=== PATIENT | female | born 1945 | race Hispanic/Latino ===

== ENCOUNTER 2020-06-30 16:46 | Inpatient (IN) | payer MEDICARE, OTHER ==
[~2020-06-30] VITALS: Ht 160 cm; Wt 57.8 kg
--- OUTSIDE RECORDS SUMMARY | 2020-06-30 17:06 | XMS REPORT | Summary of Care ---
Author Author ALEX Rivera M.A. Organization Unknown Address Unknown Phone Unavailable Care Team Providers Care End Frazer Name Role Phone SARIKA HAM M.D. 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) Status: Active Medications Name Dates Details Medications not documented Allergies and Adverse Reactions Name Dates Details aspirin (Allergy) Status: Active Penicillins (Allergy) Status: Active Procedures Procedure Dates Details [U] XRAY KNEE 4 OR MORE VWS LEFT [id number] Date: 16-Oct-2017 Immunization Name Dates Details Immunizations not documented Social History Name Dates Details Unknown if ever smoked Vital Signs Date Test Result Details 17-Oct-20179:11 Height 62 in Status: Weight 129 lb Status: Body Mass Index Calculated 23.59 kg/m2 Status: Body Surface Area Calculated 1.59 m2 Status: Results Date Description Value Details Results not documented Plan of Care Name Dates Details Planned Observations Planned Goals not documented Interventions Provided Labs/Procedures/Imaging* [U] XRAY KNEE 4 OR MORE VWS LEFT [id number]; To Be Done: 17 Oct 2017 Instructions Name Dates Details Instructions not documented Encounters Appointment; SARIKA HAM M.D. Encounter Diagnosis: Problem not documented On: 17-Oct-2017 8:45
--- OUTSIDE RECORDS SUMMARY | 2020-06-30 17:06 | XMS REPORT | Continuity of Care Document ---
Author Author [facility] Organization [facility] Address [address] [place] [address] Phone Unavailable Care Team Providers Care Adolescent Counselor Name Role Phone SARIKA HAM M.D. Attphys Unavailable Payers Payer Name Policy Type Policy Number Effective Date Expiration Date S ource Problems Condition Name Condition Details Condition Category Status Onset Date Resolution Date Last Treatment Date Treating Clinician Comments Source Limb pain Limb pain Problem Active [facility] Allergies, Adverse Reactions, Alerts Allergy Name Allergy Type Status Severity Reaction(s) Onset Date Inacti ve Date Treating Clinician Comments Source baclofen DA Active 2017-07-04 00:00:00 [facility] Penicillins DA Active 2017-07-03 00:00:00 [facility] aspirin DA Active [place] 2017-07-03 00:00:00 [facility] penicillin G DA Active 2010-04-05 00:00:00 [facility] aspirin drug allergy Active [facility] Penicillins drug allergy Active [facility] Medications This patient has no known medications. Vital Signs Vital Name Observation Time Observation Value Comments Source Height 2017-10-17 09:11:00 62 [in_us] [facility] Weight 2017-10-17 09:11:00 129 [lb_av] [facility] Body Mass Index Calculated 2017-10-17 09:11:00 23.59 kg/m2 [facility] Procedures Procedure Date / Time Performed Performing Clinician Sourc e [U] XRAY KNEE 4 OR MORE VWS LEFT [id number] 2017-10-16 00:00:00 [facility] Encounters Start Date/Time End Date/Time Encounter Type Admission Type Attendi [facility] Care Department Encounter ID Source 2017-10-17 08:45:00 2017-10-17 08:45:00 Appointment; SARIKA HAM M.D. HUANG, EDDIE, M.D. [facility] Orthopedics at [facility] [id number] [facility] Results Test Description Test Time Test Comments Results Result Comments Source GLUCOSE BEDSIDE TESTING 2020-05-25 11:38:00 Test Item GLUCOSE BEDSIDE TESTING (test code = GLUBED) 184 MG/DL 70-119 H GLUCOSE BEDSIDE [id number] 08:29:00* Test Item Value Reference Range Interpretation Comments GLUCOSE BEDSIDE TESTING (test code = GLUBED) 79 MG/DL 70-119 N COMPREHENSIVE METABOLIC [id number] 07:25:00* Test Item Value Reference Range Interpretation Comments SODIUM (test code = NA) 138.0 mmol/L 133-144 N POTASSIUM (test code = K) 3.7 mmol/L 3.5-5.1 N CHLORIDE (test code = CL) 107 mmol/L 95-105 H CARBON DIOXIDE (test code = CO2) 27 mmol/L 21-32 N ANION GAP (test code = GAP) 4.0 GAP calc 4.0-15.0 N GLUCOSE (test code = GLU) 92 MG/DL 70-110 N BLOOD UREA NITROGEN (test code = BUN) 14 MG/DL 7-18 N GLOMERULAR FILTRATION RATE (test code = GFR) 29 estGFR >60 L The estimated glomerular filtration rate is computed usingpatient race, age, sex, and serum creatinine. If any of theneeded data elements are missing the Laboratory can notcompute an estimation of the glomerular filtration rate.The GFR value units = ml/min/1.73 meter squared. EstimatedGFR values above 60 should be interpreted as >60, not anexact number.--- DRUG DOSAGE ALERT --- Drug dosage adjustments utilize different calculationparameters. CREATININE (test code = CREAT) 1.71 MG/DL 0.55-1.30 H Results may be depressed if patient is takingN-Acetylcysteine (NAC) and Metamizole (Dipyrone). TOTAL PROTEIN (test code = PROT) 6.2 G/DL 6.4-8.2 L ALBUMIN (test code = ALB) 2.3 G/DL 3.4-5.0 L ALBUMIN/GLOBULIN RATIO (test code = A/G) 0.6 RATIO 1.2-2.2 L CALCIUM (test code = CA) 7.8 MG/DL 8.5-10.1 L BILIRUBIN TOTAL (test code = BILT) 0.37 MG/DL 0.00-1.00 N BILIRUBIN DIRECT (test code = BILD) 0.19 MG/DL 0.00-0.30 N BILIRUBIN INDIRECT (test code = BILIND) 0.18 MG/DL 0.2-1.3 L SGOT/AST (test code = AST) 27 Unit/L 15-37 N SGPT/ALT (test code = ALT) 18 Unit/L 12-78 N ALKALINE PHOSPHATASE TOTAL (test code = ALKP) 83 Unit/L 45-117 N INDEX HEMOLYSIS (test code = HEMINDEX) 1 NORMAL <10 MG Index/DL 1 N ORMAL INDEX ICTERIC (test code = ICTINDEX) 1 NORMAL <2 MG Index/DL 1 NORM AL INDEX LIPEMIA (test code = LIPINDEX) 1 NORMAL <50 MG Index/DL 1 NOR MAL COMPREHENSIVE METABOLIC [id number] 07:20:00* Test Item Value Reference Range Interpretation Comments SODIUM (test code = NA) 138.0 mmol/L 133-144 N POTASSIUM (test code = K) 3.7 mmol/L 3.5-5.1 N CHLORIDE (test code = CL) 107 mmol/L 95-105 H CARBON DIOXIDE (test code = CO2) 27 mmol/L 21-32 N ANION GAP (test code = GAP) 4.0 GAP calc 4.0-15.0 N GLUCOSE (test code = GLU) 92 MG/DL 70-110 N BLOOD UREA NITROGEN (test code = BUN) 14 MG/DL 7-18 N CREATININE (test code = CREAT) MG/DL 0.55-1.30 TOTAL PROTEIN (test code = PROT) G/DL 6.4-8.2 ALBUMIN (test code = ALB) 2.3 G/DL 3.4-5.0 L ALBUMIN/GLOBULIN RATIO (test code = A/G) RATIO 1.2-2.2 CALCIUM (test code = CA) 7.8 MG/DL 8.5-10.1 L BILIRUBIN TOTAL (test code = BILT) MG/DL 0.00-1.00 BILIRUBIN DIRECT (test code = BILD) MG/DL 0.00-0.30 BILIRUBIN INDIRECT (test code = BILIND) MG/DL 0.2-1.3 SGOT/AST (test code = AST) Unit/L 15-37 SGPT/ALT (test code = ALT) Unit/L 12-78 ALKALINE PHOSPHATASE TOTAL (test code = ALKP) Unit/L 45-117 INDEX HEMOLYSIS (test code = HEMINDEX) 1 NORMAL <10 MG Index/DL 1 N ORMAL INDEX ICTERIC (test code = ICTINDEX) 1 NORMAL <2 MG Index/DL 1 NORM AL INDEX LIPEMIA (test code = LIPINDEX) 1 NORMAL <50 MG Index/DL 1 NOR MAL GLUCOSE BEDSIDE [id number] 20:23:00* Test Item Value Reference Range Interpretation Comments GLUCOSE BEDSIDE TESTING (test code = GLUBED) 139 MG/DL 70-119 H GLUCOSE BEDSIDE [id number] 16:04:00* Test Item Value Reference Range Interpretation Comments GLUCOSE BEDSIDE TESTING (test code = GLUBED) 77 MG/DL 70-119 N - SP ANGIO EXT UNI [id number] 14:11:00 Patient Name: ALEX FRASER Unit No: [id number] EXAMS: CPT CODE: [id number] [place] [id number] AORTOGRAM, BILATERAL LOWER EXTREMITY ARTERIOGRAM, SELECTIVE CATHETERIZATION OF THE LEFT SUPERFICIAL FEMORAL ARTERY, LEFT COMMON FEMORAL AND POPLITEAL ATHERECTOMY AND DRUG COATED BALLOON ANGIOPLASTY Dated: 05/24/2020 12:00 PM LOCATION: T18 Reference air kerma: 169 mGy Indication: History of ischemic changes to the left lower extremity. SEDATION: Under physician supervision, Versed and fentanyl were administered intravenously for moderate sedation. Pulse oximetry, heart rate, and BP were continuously monitored by an independent trained ob magnetic observer present. The physician spent 20 minutes of pnwy-ja-wunj sedation t kathy with the patient. TECHNIQUE: The risks, benefits, and al ternatives were discussed and informed consent was obtained. Prior to beg inning the procedure, Tutwiler Protocol was used to confirm the patient's identity and planned procedure. Sterile barriers including cap, mask, west d hygiene, sterile gloves, and cutaneous antisepsis were used. Procedure: Prior to the procedure, the right common femoral artery was evaluated by ultrasound. An image of the patent vessel was recorded and saved to PACS. After sterile prep, this vessel was accessed with a micropuncture needle using real-time ultrasound guidance. The tract seq uentially dilated and a 5-Puerto [place]ican flush catheter advanced to the level of t he abdominal aorta. The catheter was withdrawn to the aortic bifurcation and bilateral oblique pelvic arteriograms performed. The catheter was sub sequently withdrawn to the right external iliac artery and the right lower extremity arteriogram performed. Subsequent selective catheterization of the left superficial femoral artery was performed and left lower extremit y arteriogram performed. Subsequently over wire exchange was then pe rformed for long 6 [place] sheath which is placed over the aortic bifurcati on into the left external iliac artery. A catheter and guidewire were then advanced across the areas of the left common femoral and popliteal artery stenosis. Atherectomy was then performed with a CSI 2 mm atherectomy noy ce. This was followed by 6 mm Lutonix drug coated balloon angioplasty at t he level of the common femoral artery and 5 mm Lutonix drug coated balloon angioplasty at the level of the popliteal artery. Postprocedure there was no significant residual stenosis or flow limiting dissection, the cathete r was removed and hemostasis secured by means of the StarClose system. Findings: ABDOMINAL AORTA: The abdominal aorta is paten t and free of significant [facility] NAME: ALEX YOUSIF Interventional Lab PHYS: Rylan Doyle Od, MD [address] [place] [address] Blvd : 1945 AGE: 75 SEX: F [place], [place] [phone] LOC: B.240 W PHONE #: EXAM DATE: 05/24/2020 STATUS: A DM IN FAX #: RAD #: D/C DT PAGE 1 Signed Report (CONTINUED) Patient Name: ALEX FRASER Unit No: [id number] EXAMS: CPT CODE: [id number] [place] [id number] <Continued> stenosis. There are patent celiac, superior mesenteric, and bilateral single renal arteries noted. RIGHT LOWER EXTREMITY ARTERIOGRAM: There is a focal area of 70-80% stenosis of the common iliac artery. The external and internal iliac arteries are patent and free of significant stenosis. The right internal iliac artery is also patent and free of sign ificant stenosis.. The right common, superficial femoral artery and popli teal artery are free of significant stenosis and there is three-vessel anterior tibial, tibioperoneal, peroneal, and posterior tibial artery r unoff to the right foot with predominant supply of the right foot being vi a the dorsalis pedis artery. LEFT LOWER EXTREMITY ARTERIOGRAM: The re is a focal area of 70-80% stenosis of the left common iliac artery. The left external and internal iliac arteries are patent and free of signific ant stenosis. There is a focus of 80% stenosis of the common femoral arter y patent superficial femoral and profunda femoris arteries, focus of 70% stenosis of the above knee popliteal artery and three-vessel anterior tibial tibioperoneal peroneal and posterior tibial artery runoff to the f oot. Complications: None. IMPRESSION: 1. Successful left common femoral and popliteal atherectomy and a ngioplasty. 2. Bilateral common iliac stenosis. PLAN: Elective arteriogram and intervention for the bilateral common iliac stone nosis at 1411 Reported and signed by: Rylan Lerner M.D. CC: Rylan Lerner MD; Josh Storey Dictated Date/Time: 05/24/2020 ( 1410) Technologist: Anderson toscano Time: DAP (Gy m2): Air Kerma (mGy): Trnscrpt: 020 (141) [email or web address] [facility] [place] IR NAME: ALEX FRASER Interventional Lab PHYS: Rylan Noel MD [address] [place] [address] Blvd : 1945 AGE: 75 SEX: F [place], [place] [address] LOC: B.240 W PHONE #: EXAM DATE: STATUS: ADM IN FAX #: RAD #: D/C DT PAGE 2 Signed Report - SP AORTOGM ABD [id number] 14:11:00 Patient Name: ALEX FRASER Unit No: [id number] EXAMS: CPT CODE: [id number] SP AORTOGM ABD W/RNF [id number] AORTOGRAM, BILATERAL LOWER EXTREMITY ARTERIOGRAM, SELECTIVE CATHETERIZATION OF THE LEFT SUPERFICIAL FEMORAL ARTERY, LEFT COMMON FEMORAL AND POPLITEAL ATHERECTOMY AND DRUG COATED BALLOON ANGIOPLASTY Dated: 05/24/2020 12:00 PM LOCATION: T18 Reference air kerma: 169 mGy Indication: History of ischemic changes to the left lower extremity. SEDATION: Under physician supervision, Versed and fentanyl were administered intravenously for moderate sedation. Pulse oximetry, heart rate, and BP were continuously monitored by an independent trained ob magnetic observer present. The physician spent 20 minutes of kltq-oi-avxe sedation t kathy with the patient. TECHNIQUE: The risks, benefits, and al ternatives were discussed and informed consent was obtained. Prior to beg inning the procedure, Tutwiler Protocol was used to confirm the patient's identity and planned procedure. Sterile barriers including cap, mask, west d hygiene, sterile gloves, and cutaneous antisepsis were used. Procedure: Prior to the procedure, the right common femoral artery was evaluated by ultrasound. An image of the patent vessel was recorded and saved to PACS. After sterile prep, this vessel was accessed with a micropuncture needle using real-time ultrasound guidance. The tract seq uentially dilated and a 5-[place] flush catheter advanced to the level of t he abdominal aorta. The catheter was withdrawn to the aortic bifurcation and bilateral oblique pelvic arteriograms performed. The catheter was sub sequently withdrawn to the right external iliac artery and the right lower extremity arteriogram performed. Subsequent selective catheterization of the left superficial femoral artery was performed and left lower extremit y arteriogram performed. Subsequently over wire exchange was then pe rformed for long 6 [place] sheath which is placed over the aortic bifurcati on into the left external iliac artery. A catheter and guidewire were then advanced across the areas of the left common femoral and popliteal artery stenosis. Atherectomy was then performed with a CSI 2 mm atherectomy noy ce. This was followed by 6 mm Lutonix drug coated balloon angioplasty at t he level of the common femoral artery and 5 mm Lutonix drug coated balloon angioplasty at the level of the popliteal artery. Postprocedure there was no significant residual stenosis or flow limiting dissection, the cathete r was removed and hemostasis secured by means of the StarClose system. Findings: ABDOMINAL AORTA: The abdominal aorta is paten t and free of significant [facility] NAME: ALEX YOUSIF Interventional Lab PHYS: Rylan Doyle Od, MD [address] [place] [address] Blvd : 1945 AGE: 75 SEX: [place] [phone] LOC: B.240 W PHONE #: EXAM DATE: 05/24/2020 STATUS: A DM IN FAX #: RAD #: D/C DT PAGE 1 Signed Report (CONTINUED) Patient Name: ALEX FRASER Unit No: [id number] EXAMS: CPT CODE: [id number] SP AORT OGM ABD W/RNF [id number] <Continued> stenosis. There are patent celiac, superior mesenteric, and bilateral single renal arteries noted. RIGHT LOWER EXTREMITY ARTERIOGRAM: There is a focal area of 70-80% stenosis of the common iliac artery. The external and internal iliac arteries are patent and free of significant stenosis. The right internal iliac artery is also patent and free of sign ificant stenosis.. The right common, superficial femoral artery and popli teal artery are free of significant stenosis and there is three-vessel anterior tibial, tibioperoneal, peroneal, and posterior tibial artery r unoff to the right foot with predominant supply of the right foot being vi a the dorsalis pedis artery. LEFT LOWER EXTREMITY ARTERIOGRAM: The re is a focal area of 70-80% stenosis of the left common iliac artery. The left external and internal iliac arteries are patent and free of signific ant stenosis. There is a focus of 80% stenosis of the common femoral arter y patent superficial femoral and profunda femoris arteries, focus of 70% stenosis of the above knee popliteal artery and three-vessel anterior tibial tibioperoneal peroneal and posterior tibial artery runoff to the f oot. Complications: None. IMPRESSION: 1. Successful left common femoral and popliteal atherectomy and a ngioplasty. 2. Bilateral common iliac stenosis. PLAN: Elective arteriogram and intervention for the bilateral common iliac stone nosis at 1411 Reported and signed by: Rylan Lerner M.D. CC: Rylan Lerner MD; Josh Varela Date/Time: 05/24/2020 ( 141) Technologist: Anderson Grimes ro Time: DAP (Gy m2): Air Kerma (mGy): Trnscrpt: 020 (141) [email or web address] [facility] [place] IR NAME: ALEX FRASER Interventional Lab PHYS: Rylan Noel MD [address] [place] [address] Blvd : 1945 AGE: 75 SEX: F [place], [place] [phone] LOC: B.240 W PHONE #: EXAM DATE: STATUS: ADM IN FAX #: RAD #: D/C DT PAGE 2 Signed Report GLUCOSE BEDSIDE [id number] 13:38:00* Test Item Value Reference Range Interpretation Comments GLUCOSE BEDSIDE TESTING (test code = GLUBED) 84 MG/DL 70-119 N GLUCOSE BEDSIDE [id number] 11:52:00* Test Item Value Reference Range Interpretation Comments GLUCOSE BEDSIDE TESTING (test code = GLUBED) 79 MG/DL 70-119 N GLUCOSE BEDSIDE [id number] 08:22:00* Test Item Value Reference Range Interpretation Comments GLUCOSE BEDSIDE TESTING (test code = GLUBED) 98 MG/DL 70-119 N BASIC METABOLIC [id number] 05:10:00* Test Item Value Reference Range Interpretation Comments SODIUM (test code = NA) 138.0 mmol/L 133-144 N POTASSIUM (test code = K) 3.7 mmol/L 3.5-5.1 N CHLORIDE (test code = CL) 107 mmol/L 95-105 H CARBON DIOXIDE (test code = CO2) 27 mmol/L 21-32 N ANION GAP (test code = GAP) 4.0 GAP calc 4.0-15.0 N GLUCOSE (test code = GLU) 87 MG/DL 70-110 N BLOOD UREA NITROGEN (test code = BUN) 15 MG/DL 7-18 N CREATININE (test code = CREAT) 1.79 MG/DL 0.55-1.30 H Results may be depressed if patient is takingN-Acetylcysteine (NAC) and Metamizole (Dipyrone). CALCIUM (test code = CA) 8.0 MG/DL 8.5-10.1 L INDEX HEMOLYSIS (test code = HEMINDEX) 1 NORMAL <10 MG Index/DL 1 N ORMAL INDEX ICTERIC (test code = ICTINDEX) 1 NORMAL <2 MG Index/DL 1 NORM AL INDEX LIPEMIA (test code = LIPINDEX) 1 NORMAL <50 MG Index/DL 1 NOR MAL BASIC METABOLIC [id number] 05:07:00* Test Item Value Reference Range Interpretation Comments SODIUM (test code = NA) 138.0 mmol/L 133-144 N POTASSIUM (test code = K) 3.7 mmol/L 3.5-5.1 N CHLORIDE (test code = CL) 107 mmol/L 95-105 H CARBON DIOXIDE (test code = CO2) 27 mmol/L 21-32 N ANION GAP (test code = GAP) 4.0 GAP calc 4.0-15.0 N GLUCOSE (test code = GLU) 87 MG/DL 70-110 N BLOOD UREA NITROGEN (test code = BUN) 15 MG/DL 7-18 N CREATININE (test code = CREAT) MG/DL 0.55-1.30 CALCIUM (test code = CA) 8.0 MG/DL 8.5-10.1 L INDEX HEMOLYSIS (test code = HEMINDEX) 1 NORMAL <10 MG Index/DL 1 N ORMAL INDEX ICTERIC (test code = ICTINDEX) 1 NORMAL <2 MG Index/DL 1 NORM AL INDEX LIPEMIA (test code = LIPINDEX) 1 NORMAL <50 MG Index/DL 1 NOR MAL CBC W/AUTO [id number] 04:50:00* Test Item Value Reference Range Interpretation Comments WHITE BLOOD CELL (test code = WBC) 10.0 K/mm3 4.1-12.1 N RED BLOOD CELL (test code = RBC) 3.38 M/mm3 3.8-5.5 L HEMOGLOBIN (test code = HGB) 9.1 G/DL 10.6-15.8 L HEMATOCRIT (test code = HCT) 29.8 % 31.8-47.4 L MEAN CELL VOLUME (test code = MCV) 88.2 fL 80.1-101.1 N MEAN CELL HGB (test code = MCH) 26.9 pg 25.3-35.3 N MEAN CELL HGB CONCETRATION (test code = MCHC) 30.5 G/DL 32.7-35. 1 L RED CELL DISTRIBUTION WIDTH (test code = RDW) 14.9 % 12.2-16. 4 N RED CELL DISTRIBUTION WIDTH (test code = RDW-SD) 46.8 fL 36.4- 46.3 H PLATELET COUNT (test code = PLT) 243 K/mm3 155-337 N MEAN PLATELET VOLUME (test code = MPV) 10.3 fL 6.8-11.2 N GRANULOCYTE % (test code = GR%) 70.4 % 37.8-82.6 N IMMATURE GRANULOCYTE % (test code = IG%) 1.1 % 0.0-2.0 N LYMPHOCYTE % (test code = LY%) 20.4 % 14.1-45.4 N MONOCYTE % (test code = MO%) 5.4 % 2.5-11.7 N EOSINOPHIL % (test code = EO%) 2.5 % 0.0-6.2 N BASOPHIL % (test code = BA%) 0.2 % 0.0-2.1 N NUCLEATED RBC % (test code = NRBC%) 0.0 /100WBC% 0.0-1.0 N GRANULOCYTE # (test code = GR#) 7.01 k/mm3 2.0-13.7 N IMMATURE GRANULOCYTE # (test code = IG#) 0.11 K/mm3 0.00-0.03 H LYMPHOCYTE # (test code = LY#) 2.03 K/mm3 0.6-3.8 N MONOCYTE # (test code = MO#) 0.54 K/mm3 0.11-0.59 N EOSINOPHIL # (test code = EO#) 0.25 K/mm3 0.0-0.4 N BASOPHIL # (test code = BA#) 0.02 K/mm3 0.0-0.1 N NUCLEATED RBC # (test code = NRBC#) 0.00 K/mm3 0.0-0.05 N GLUCOSE BEDSIDE [id number] 21:14:00* Test Item Value Reference Range Interpretation Comments GLUCOSE BEDSIDE TESTING (test code = GLUBED) 175 MG/DL 70-119 H GLUCOSE BEDSIDE [id number] 16:53:00* Test Item Value Reference Range Interpretation Comments GLUCOSE BEDSIDE TESTING (test code = GLUBED) 89 MG/DL 70-119 N GLUCOSE BEDSIDE [id number] 16:25:00* Test Item Value Reference Range Interpretation Comments GLUCOSE BEDSIDE TESTING (test code = GLUBED) 43 MG/DL 70-119 LL LOW/HIGH ALERT VALUE - ACTION REQUIREDINTERPRETATION ALERT>Iterpret whole blood glucose meter results <100 mg/dl withcaution. Glucose results with the Xqpwp-pt-Gxrq meters havea negative bias. Glucose is 11% higher in plasma compared towhole blood. At glucose concentrations <100 mg/dl, wholeblood glucose results may be 15-35% lower. GLUCOSE BEDSIDE [id number] 12:48:00* Test Item Value Reference Range Interpretation Comments GLUCOSE BEDSIDE TESTING (test code = GLUBED) 167 MG/DL 70-119 H GLUCOSE BEDSIDE [id number] 10:27:00* Test Item Value Reference Range Interpretation Comments GLUCOSE BEDSIDE TESTING (test code = GLUBED) 109 MG/DL 70-119 N GLUCOSE BEDSIDE [id number] 20:22:00* Test Item Value Reference Range Interpretation Comments GLUCOSE BEDSIDE TESTING (test code = GLUBED) 99 MG/DL 70-119 N GLUCOSE BEDSIDE [id number] 15:56:00* Test Item Value Reference Range Interpretation Comments GLUCOSE BEDSIDE TESTING (test code = GLUBED) 97 MG/DL 70-119 N GLUCOSE BEDSIDE [id number] 11:37:00* Test Item Value Reference Range Interpretation Comments GLUCOSE BEDSIDE TESTING (test code = GLUBED) 171 MG/DL 70-119 H COMPREHENSIVE METABOLIC [id number] 07:44:00* Test Item Value Reference Range Interpretation Comments SODIUM (test code = NA) 139.0 mmol/L 133-144 N POTASSIUM (test code = K) 3.9 mmol/L 3.5-5.1 N CHLORIDE (test code = CL) 109 mmol/L 95-105 H CARBON DIOXIDE (test code = CO2) 25 mmol/L 21-32 N ANION GAP (test code = GAP) 5.0 GAP calc 4.0-15.0 N GLUCOSE (test code = GLU) 84 MG/DL 70-110 N BLOOD UREA NITROGEN (test code = BUN) 21 MG/DL 7-18 H GLOMERULAR FILTRATION RATE (test code = GFR) 28 estGFR >60 L The estimated glomerular filtration rate is computed usingpatient race, age, sex, and serum creatinine. If any of theneeded data elements are missing the Laboratory can notcompute an estimation of the glomerular filtration rate.The GFR value units = ml/min/1.73 meter squared. EstimatedGFR values above 60 should be interpreted as >60, not anexact number.--- DRUG DOSAGE ALERT --- Drug dosage adjustments utilize different calculationparameters. CREATININE (test code = CREAT) 1.74 MG/DL 0.55-1.30 H Results may be depressed if patient is takingN-Acetylcysteine (NAC) and Metamizole (Dipyrone). TOTAL PROTEIN (test code = PROT) 6.0 G/DL 6.4-8.2 L ALBUMIN (test code = ALB) 2.1 G/DL 3.4-5.0 L ALBUMIN/GLOBULIN RATIO (test code = A/G) 0.5 RATIO 1.2-2.2 L CALCIUM (test code = CA) 8.0 MG/DL 8.5-10.1 L BILIRUBIN TOTAL (test code = BILT) 0.39 MG/DL 0.00-1.00 N BILIRUBIN DIRECT (test code = BILD) 0.14 MG/DL 0.00-0.30 N BILIRUBIN INDIRECT (test code = BILIND) 0.25 MG/DL 0.2-1.3 N SGOT/AST (test code = AST) 24 Unit/L 15-37 N SGPT/ALT (test code = ALT) 19 Unit/L 12-78 N ALKALINE PHOSPHATASE TOTAL (test code = ALKP) 89 Unit/L 45-117 N INDEX HEMOLYSIS (test code = HEMINDEX) 1 NORMAL <10 MG Index/DL 1 N ORMAL INDEX ICTERIC (test code = ICTINDEX) 1 NORMAL <2 MG Index/DL 1 NORM AL INDEX LIPEMIA (test code = LIPINDEX) 1 NORMAL <50 MG Index/DL 1 NOR [facility] COMPREHENSIVE METABOLIC [id number] 07:42:00* Test Item Value Reference Range Interpretation Comments SODIUM (test code = NA) 139.0 mmol/L 133-144 N POTASSIUM (test code = K) 3.9 mmol/L 3.5-5.1 N CHLORIDE (test code = CL) 109 mmol/L 95-105 H CARBON DIOXIDE (test code = CO2) 25 mmol/L 21-32 N ANION GAP (test code = GAP) 5.0 GAP calc 4.0-15.0 N GLUCOSE (test code = GLU) 84 MG/DL 70-110 N BLOOD UREA NITROGEN (test code = BUN) 21 MG/DL 7-18 H GLOMERULAR FILTRATION RATE (test code = GFR) 28 estGFR >60 L The estimated glomerular filtration rate is computed usingpatient race, age, sex, and serum creatinine. If any of theneeded data elements are missing the Laboratory can notcompute an estimation of the glomerular filtration rate.The GFR value units = ml/min/1.73 meter squared. EstimatedGFR values above 60 should be interpreted as >60, not anexact number.--- DRUG DOSAGE ALERT --- Drug dosage adjustments utilize different calculationparameters. CREATININE (test code = CREAT) 1.74 MG/DL 0.55-1.30 H Results may be depressed if patient is takingN-Acetylcysteine (NAC) and Metamizole (Dipyrone). TOTAL PROTEIN (test code = PROT) G/DL 6.4-8.2 ALBUMIN (test code = ALB) 2.1 G/DL 3.4-5.0 L ALBUMIN/GLOBULIN RATIO (test code = A/G) RATIO 1.2-2.2 CALCIUM (test code = CA) 8.0 MG/DL 8.5-10.1 L BILIRUBIN TOTAL (test code = BILT) MG/DL 0.00-1.00 BILIRUBIN DIRECT (test code = BILD) 0.14 MG/DL 0.00-0.30 N BILIRUBIN INDIRECT (test code = BILIND) MG/DL 0.2-1.3 SGOT/AST (test code = AST) 24 Unit/L 15-37 N SGPT/ALT (test code = ALT) 19 Unit/L 12-78 N ALKALINE PHOSPHATASE TOTAL (test code = ALKP) Unit/L 45-117 INDEX HEMOLYSIS (test code = HEMINDEX) 1 NORMAL <10 MG Index/DL 1 N ORMAL INDEX ICTERIC (test code = ICTINDEX) 1 NORMAL <2 MG Index/DL 1 NORM AL INDEX LIPEMIA (test code = LIPINDEX) 1 NORMAL <50 MG Index/DL 1 NOR MAL GLUCOSE BEDSIDE [id number] 07:29:00* Test Item Value Reference Range Interpretation Comments GLUCOSE BEDSIDE TESTING (test code = GLUBED) 94 MG/DL 70-119 N GLUCOSE BEDSIDE [id number] 20:51:00* Test Item Value Reference Range Interpretation Comments GLUCOSE BEDSIDE TESTING (test code = GLUBED) 142 MG/DL 70-119 H GLUCOSE BEDSIDE [id number] 16:20:00* Test Item Value Reference Range Interpretation Comments GLUCOSE BEDSIDE TESTING (test code = GLUBED) 71 MG/DL 70-119 N GLUCOSE BEDSIDE [id number] 12:33:00* Test Item Value Reference Range Interpretation Comments GLUCOSE BEDSIDE TESTING (test code = GLUBED) 82 MG/DL 70-119 N GLUCOSE BEDSIDE [id number] 08:23:00* Test Item Value Reference Range Interpretation Comments GLUCOSE BEDSIDE TESTING (test code = GLUBED) 93 MG/DL 70-119 N BASIC METABOLIC [id number] 04:51:00* Test Item Value Reference Range Interpretation Comments SODIUM (test code = NA) 140.0 mmol/L 133-144 N POTASSIUM (test code = K) 3.9 mmol/L 3.5-5.1 N CHLORIDE (test code = CL) 107 mmol/L 95-105 H CARBON DIOXIDE (test code = CO2) 29 mmol/L 21-32 N ANION GAP (test code = GAP) 4.0 GAP calc 4.0-15.0 N GLUCOSE (test code = GLU) 89 MG/DL 70-110 N BLOOD UREA NITROGEN (test code = BUN) 23 MG/DL 7-18 H CREATININE (test code = CREAT) 1.82 MG/DL 0.55-1.30 H Results may be depressed if patient is takingN-Acetylcysteine (NAC) and Metamizole (Dipyrone). CALCIUM (test code = CA) 8.6 MG/DL 8.5-10.1 N INDEX HEMOLYSIS (test code = HEMINDEX) 1 NORMAL <10 MG Index/DL 1 N ORMAL INDEX ICTERIC (test code = ICTINDEX) 1 NORMAL <2 MG Index/DL 1 NORM AL INDEX LIPEMIA (test code = LIPINDEX) 1 NORMAL <50 MG Index/DL 1 NOR MAL CBC W/AUTO [id number] 04:32:00* Test Item Value Reference Range Interpretation Comments WHITE BLOOD CELL (test code = WBC) 8.6 K/mm3 4.1-12.1 N RED BLOOD CELL (test code = RBC) 3.74 M/mm3 3.8-5.5 L HEMOGLOBIN (test code = HGB) 9.8 G/DL 10.6-15.8 L HEMATOCRIT (test code = HCT) 32.7 % 31.8-47.4 N MEAN CELL VOLUME (test code = MCV) 87.4 fL 80.1-101.1 N MEAN CELL HGB (test code = MCH) 26.2 pg 25.3-35.3 N MEAN CELL HGB CONCETRATION (test code = MCHC) 30.0 G/DL 32.7-35. 1 L RED CELL DISTRIBUTION WIDTH (test code = RDW) 14.1 % 12.2-16. 4 N RED CELL DISTRIBUTION WIDTH (test code = RDW-SD) 44.8 fL 36.4- 46.3 N PLATELET COUNT (test code = PLT) 318 K/mm3 155-337 N MEAN PLATELET VOLUME (test code = MPV) 9.9 fL 6.8-11.2 N GRANULOCYTE % (test code = GR%) 67.6 % 37.8-82.6 N IMMATURE GRANULOCYTE % (test code = IG%) 0.8 % 0.0-2.0 N LYMPHOCYTE % (test code = LY%) 22.9 % 14.1-45.4 N MONOCYTE % (test code = MO%) 5.6 % 2.5-11.7 N EOSINOPHIL % (test code = EO%) 2.9 % 0.0-6.2 N BASOPHIL % (test code = BA%) 0.2 % 0.0-2.1 N NUCLEATED RBC % (test code = NRBC%) 0.0 /100WBC% 0.0-1.0 N GRANULOCYTE # (test code = GR#) 5.80 k/mm3 2.0-13.7 N IMMATURE GRANULOCYTE # (test code = IG#) 0.07 K/mm3 0.00-0.03 H LYMPHOCYTE # (test code = LY#) 1.97 K/mm3 0.6-3.8 N MONOCYTE # (test code = MO#) 0.48 K/mm3 0.11-0.59 N EOSINOPHIL # (test code = EO#) 0.25 K/mm3 0.0-0.4 N BASOPHIL # (test code = BA#) 0.02 K/mm3 0.0-0.1 N NUCLEATED RBC # (test code = NRBC#) 0.00 K/mm3 0.0-0.05 N GLUCOSE BEDSIDE [id number] 20:56:00* Test Item Value Reference Range Interpretation Comments GLUCOSE BEDSIDE TESTING (test code = GLUBED) 109 MG/DL 70-119 N GLUCOSE BEDSIDE [id number] 16:47:00* Test Item Value Reference Range Interpretation Comments GLUCOSE BEDSIDE TESTING (test code = GLUBED) 97 MG/DL 70-119 N GLUCOSE BEDSIDE [id number] 15:52:00* Test Item Value Reference Range Interpretation Comments GLUCOSE BEDSIDE TESTING (test code = GLUBED) 56 MG/DL 70-119 LL GLUCOSE BEDSIDE [id number] 15:51:00* Test Item Value Reference Range Interpretation Comments GLUCOSE BEDSIDE TESTING (test code = GLUBED) 68 MG/DL 70-119 L GLUCOSE BEDSIDE [id number] 11:55:00* Test Item Value Reference Range Interpretation Comments GLUCOSE BEDSIDE TESTING (test code = GLUBED) 73 MG/DL 70-119 N BASIC METABOLIC [id number] 04:56:00* Test Item Value Reference Range Interpretation Comments SODIUM (test code = NA) 139.0 mmol/L 133-144 N POTASSIUM (test code = K) 4.7 mmol/L 3.5-5.1 N CHLORIDE (test code = CL) 108 mmol/L 95-105 H CARBON DIOXIDE (test code = CO2) 26 mmol/L 21-32 N ANION GAP (test code = GAP) 5.0 GAP calc 4.0-15.0 N GLUCOSE (test code = GLU) 91 MG/DL 70-110 N BLOOD UREA NITROGEN (test code = BUN) 28 MG/DL 7-18 H CREATININE (test code = CREAT) 1.90 MG/DL 0.55-1.30 H Results may be depressed if patient is takingN-Acetylcysteine (NAC) and Metamizole (Dipyrone). CALCIUM (test code = CA) 8.7 MG/DL 8.5-10.1 N INDEX HEMOLYSIS (test code = HEMINDEX) 1 NORMAL <10 MG Index/DL 1 N ORMAL INDEX ICTERIC (test code = ICTINDEX) 1 NORMAL <2 MG Index/DL 1 NORM AL INDEX LIPEMIA (test code = LIPINDEX) 1 NORMAL <50 MG Index/DL 1 NOR MAL BASIC METABOLIC [id number] 04:50:00* Test Item Value Reference Range Interpretation Comments SODIUM (test code = NA) 139.0 mmol/L 133-144 N POTASSIUM (test code = K) 4.7 mmol/L 3.5-5.1 N CHLORIDE (test code = CL) 108 mmol/L 95-105 H CARBON DIOXIDE (test code = CO2) mmol/L 21-32 ANION GAP (test code = GAP) GAP calc 4.0-15.0 GLUCOSE (test code = GLU) MG/DL 70-110 BLOOD UREA NITROGEN (test code = BUN) MG/DL 7-18 CREATININE (test code = CREAT) MG/DL 0.55-1.30 CALCIUM (test code = CA) MG/DL 8.5-10.1 INDEX HEMOLYSIS (test code = HEMINDEX) 1 NORMAL <10 MG Index/DL 1 N ORMAL INDEX ICTERIC (test code = ICTINDEX) 1 NORMAL <2 MG Index/DL 1 NORM AL INDEX LIPEMIA (test code = LIPINDEX) 1 NORMAL <50 MG Index/DL 1 NOR MAL GLUCOSE BEDSIDE [id number] 20:43:00* Test Item Value Reference Range Interpretation Comments GLUCOSE BEDSIDE TESTING (test code = GLUBED) 101 MG/DL 70-119 N GLUCOSE BEDSIDE [id number] 16:38:00* Test Item Value Reference Range Interpretation Comments GLUCOSE BEDSIDE TESTING (test code = GLUBED) 71 MG/DL 70-119 N GLUCOSE BEDSIDE [id number] 12:26:00* Test Item Value Reference Range Interpretation Comments GLUCOSE BEDSIDE TESTING (test code = GLUBED) 120 MG/DL 70-119 H GLUCOSE BEDSIDE [id number] 07:59:00* Test Item Value Reference Range Interpretation Comments GLUCOSE BEDSIDE TESTING (test code = GLUBED) 83 MG/DL 70-119 N - XR CHEST 1 [id number] 06:59:00 FAX: Hunter Brenner MD [phone] [place]: C St: ADM FAX: Josh Packer MD [phone] FAX: Alberto Tucker MD [phone] Patient Name: ALEX FRASER Unit No: [id number] EXAMS: CPT CODE: [id number] XR CHEST 1 V 79031 EXAMINATION: - XR CHEST 1 V LOCATION: 1 INDICATION/CLINICAL HISTORY: fu pulmonary edema COMPARISON: Chest x-ray 05/17/2020 TECHNIQUE: Frontal view of the chest. FINDINGS: Limited study due to patient rotation. Cardiac silhouette is normal in size. Pulmonary vasculature are not congested. Streaky bibasilar opacities are likely subsegmental atelectasis. No new consolidation. No appreciable pneumothorax or pleural effusion.. IMPRESSION: 1. Limited examination due to rotation. 2. Bibasilar subsegmental a telectasis. at 0659 Reported and signed by: Israel Treviño MD CC: Josh Storey; Alberto Tucker MD Dictated Date/Time: 05/19/2020 (0659)Technologist: Delfinarosibel [place] - [place] Transcribed Date/Time: 05/19/2020 (59) By: [email or web address] Orig Print D/T: S: 05/19/2020 (07) TU Mcfadden NAME: ALEX FRASER MEDICAL IMAGING PHYS: Alberto Parham MD [address] [place] [address] BLVD : 1945 AGE: 75 SEX: Jamie [place], [place] [address] LOC: B.240 W PHONE #: [phone] EXAM DATE: 05/19/2020 STATUS: ADM IN FAX #: [phone] RAD NO : DC Dt: PAGE 1 Signed Report BASIC METABOLIC [id number] 04:44:00* Test Item Value Reference Range Interpretation Comments SODIUM (test code = NA) 140.0 mmol/L 133-144 N POTASSIUM (test code = K) 4.7 mmol/L 3.5-5.1 N CHLORIDE (test code = CL) 110 mmol/L 95-105 H CARBON DIOXIDE (test code = CO2) 26 mmol/L 21-32 N ANION GAP (test code = GAP) 4.0 GAP calc 4.0-15.0 N GLUCOSE (test code = GLU) 81 MG/DL 70-110 N BLOOD UREA NITROGEN (test code = BUN) 29 MG/DL 7-18 H CREATININE (test code = CREAT) 1.77 MG/DL 0.55-1.30 H Results may be depressed if patient is takingN-Acetylcysteine (NAC) and Metamizole (Dipyrone). CALCIUM (test code = CA) 8.7 MG/DL 8.5-10.1 N INDEX HEMOLYSIS (test code = HEMINDEX) 1 NORMAL <10 MG Index/DL 1 N ORMAL INDEX ICTERIC (test code = ICTINDEX) 1 NORMAL <2 MG Index/DL 1 NORM AL INDEX LIPEMIA (test code = LIPINDEX) 1 NORMAL <50 MG Index/DL 1 NOR MAL CBC W/AUTO [id number] 04:17:00* Test Item Value Reference Range Interpretation Comments WHITE BLOOD CELL (test code = WBC) 7.1 K/mm3 4.1-12.1 N RED BLOOD CELL (test code = RBC) 3.59 M/mm3 3.8-5.5 L HEMOGLOBIN (test code = HGB) 9.5 G/DL 10.6-15.8 L HEMATOCRIT (test code = HCT) 31.3 % 31.8-47.4 L MEAN CELL VOLUME (test code = MCV) 87.2 fL 80.1-101.1 N MEAN CELL HGB (test code = MCH) 26.5 pg 25.3-35.3 N MEAN CELL HGB CONCETRATION (test code = MCHC) 30.4 G/DL 32.7-35. 1 L RED CELL DISTRIBUTION WIDTH (test code = RDW) 14.2 % 12.2-16. 4 N RED CELL DISTRIBUTION WIDTH (test code = RDW-SD) 45.6 fL 36.4- 46.3 N PLATELET COUNT (test code = PLT) 296 K/mm3 155-337 N MEAN PLATELET VOLUME (test code = MPV) 10.2 fL 6.8-11.2 N GRANULOCYTE % (test code = GR%) 67.9 % 37.8-82.6 N IMMATURE GRANULOCYTE % (test code = IG%) 0.3 % 0.0-2.0 N LYMPHOCYTE % (test code = LY%) 23.8 % 14.1-45.4 N MONOCYTE % (test code = MO%) 5.2 % 2.5-11.7 N EOSINOPHIL % (test code = EO%) 2.4 % 0.0-6.2 N BASOPHIL % (test code = BA%) 0.4 % 0.0-2.1 N NUCLEATED RBC % (test code = NRBC%) 0.0 /100WBC% 0.0-1.0 N GRANULOCYTE # (test code = GR#) 4.80 k/mm3 2.0-13.7 N IMMATURE GRANULOCYTE # (test code = IG#) 0.02 K/mm3 0.00-0.03 N LYMPHOCYTE # (test code = LY#) 1.68 K/mm3 0.6-3.8 N MONOCYTE # (test code = MO#) 0.37 K/mm3 0.11-0.59 N EOSINOPHIL # (test code = EO#) 0.17 K/mm3 0.0-0.4 N BASOPHIL # (test code = BA#) 0.03 K/mm3 0.0-0.1 N NUCLEATED RBC # (test code = NRBC#) 0.00 K/mm3 0.0-0.05 N GLUCOSE BEDSIDE [id number] 20:11:00* Test Item Value Reference Range Interpretation Comments GLUCOSE BEDSIDE TESTING (test code = GLUBED) 98 MG/DL 70-119 N - NM MYOCRD SPECT R/S [id number] 19:20:00 Patient Name: ALEX FRASER Unit No: [id number] EXAMS: CPT CODE: [id number] NM MYOC RD SPECT R/S MULT [id number] Lexiscan Myocardial Perfusion Imaging Indication: chest pain Attending : Floridalma tSorey Procedure: Stress testing was performed via Sebastien iscan protocol. 12.5 mCi of Tc99m Sestamibi was injected and rest images were obtained. The patient then underwent Lexiscan infusion per protocol. Next, 31.4 mCi of Tc99m Sestamibi mCi was injected and stress images wer e obtained. Description of findings: There was homogenou s radiotracer distribution at stress and rest. LVEF was calculated to be 85%. Wall motion was normal. Impression: 1 . Normal study 2. No significant reversible ischemia 3. Fatou l LVEF and wall motion at 1920 Reported and sig sj by: Henry Manzano MD Nuclear Medicine Cardiol ogy exams performed on dual head cameras with appropriate software for proce ssing and reporting. CC: Josh Storey; Tae Mcfadden NAME: ALEX DO MEDICAL IMAGING PHYS: Tae Salamanca NP [address] [place] [address] BLVD : 1945 A GE: 75 SEX: Jamie [place], [place] [address] L OC: B.240 W PHONE #: [phone] EXAM DATE: 05/18/2020 STATU S: ADM IN FAX #: [phone] RAD NO: DC Dt: PAGE 1 Signed Report --- Patient Name: ALEX FRASER Unit No: [id number] EX AMS: CPT CODE: [id number] NM MYOCRD SPECT R/S MULT [id number] <Continued> Technologist: Jonelle Culp [facility]; Barbi Joseph Transcri bed Date/Time: 05/18/2020 (1919) - [email or web address] Orig Print D/T: S: 05/18/2020 (1922) TU Mcfadden NAME: ALEX FRASER MEDICAL IMAGING PHYS: Tae Salamanca NP [address] [place] [address] : 1945 AGE: 75 SEX: [place] [address] LOC: B.240 W PHONE #: [phone] EX AM DATE: 05/18/2020 STATUS: ADM IN FAX #: [phone] RAD NO: DC Dt: PAGE 2 Signed Report GLUCOSE BEDSIDE [id number] 19:01:00* Test Item Value Reference Range Interpretation Comments GLUCOSE BEDSIDE TESTING (test code = GLUBED) 79 MG/DL 70-119 N GLUCOSE BEDSIDE [id number] 19:01:00* Test Item Value Reference Range Interpretation Comments GLUCOSE BEDSIDE TESTING (test code = GLUBED) 111 MG/DL 70-119 N GLUCOSE BEDSIDE [id number] 19:01:00* Test Item Value Reference Range Interpretation Comments GLUCOSE BEDSIDE TESTING (test code = GLUBED) 69 MG/DL 70-119 L HIGH SENSITIVITY [id number] 12:09:00* Test Item Value Reference Range Interpretation Comments HIGH SENSITIVITY CRP (test code = CRPHS) 17.703 mg/dl 0.000-0.747 A DIMPLE COMPREHENSIVE [id number] 12:09:00* Test Item Value Reference Range Interpretation Comments DIMPLE COMMENT (test code = ANACOM) () Autoantibody Disease Association Condition Frequency ---------Antinuclear Antibody, SLE, mixed connectiveDirect (DIMPLE-D) tissue diseases ---------dsDNA SLE 40 - 60% ---------Chromatin Drug induced SLE 90% SLE 48 - 97% ---------SSA (Ro) SLE 25 - 35% Sjogren's Syndrome 40 - 70% Lupus 100% ---------SSB (La) SLE 10% Sjogren's Syndrome 30% ---------Sm (anti-French) SLE 15 - 30% ---------SHIPPING MANAGER Mixed Connective Tissue Disease 95%(U1 nRNP, SLE 30 - 50%anti-ribonucleoprotein) P olymyositis and/or Dermatomyositis 20% ---------Scl-70 (antiDNA Scleroderma (diffuse) 20 - 35%topoisomerase) Crest 13% ---------Liya-1 Polymyositis and/or Dermatomyositis 20 - 40% ---------Centromere B Scleroderma - Crest variant 80%Performed At: [facility] [address] [id number] Fish Harris MD Ph:[phone] reported result: Edited by: DAQUAN on 05/18/20:1209 AB CENTROMERE (test code = CENTRAB) <0.2 AI 0.0-0.9 AB CHROMATIN (test code = CHROMATAB) <0.2 AI 0.0-0.9 AB DNA DOUBLE STRAND (test code = DNADSAB) <1 IU/mL 0-9 Negative <5 Equivocal 5 - 9 Positive >9 AB KATIE/SHIPPING MANAGER FRACTION (test code = RNPAB) <0.2 AI 0.0-0.9 AB KATIE/SM FRACTION (test code = SMAB) <0.2 AI 0.0-0.9 AB LIYA-1 (test code = JO1AB) <0.2 AI 0.0-0.9 AB SCLERODERMA (test code = SCLERAB) <0.2 AI 0.0-0.9 AB SJOGRENS A/SSA (test code = SJAAB) <0.2 AI 0.0-0.9 AB SJOGRENS B/SSB (test code = SJBAB) <0.2 AI 0.0-0.9 GLUCOSE BEDSIDE [id number] 11:24:00* Test Item Value Reference Range Interpretation Comments GLUCOSE BEDSIDE TESTING (test code = GLUBED) 77 MG/DL 70-119 N GLUCOSE BEDSIDE [id number] 08:01:00* Test Item Value Reference Range Interpretation Comments GLUCOSE BEDSIDE TESTING (test code = GLUBED) 90 MG/DL 70-119 N PROCALCITONIN (PCT)2020-05-18 07:48:00* Test Item Value Reference Range Interpretation Comments PROCALCITONIN (PCT) (test code = PROCAL) 0.20 NG/ML 0.00-0.10 H PROCALCITONIN (PCT) NORMAL RANGE (ADULT) <0.05 NG/ML-normal <0.50 NG/ML-low risk of severe sepsis and/or septic shock >2.00 NG/ML-high risk of severe sepsis and/or septic shcock Concentrations of <0.5 ng/mL do not exclude an infection.Localized infections (without systemic signs) or a systemicinfection in its initial stages (<6 hours) can be associatedwith such low concentrations. It is recommended to retestPCT within 6-24 hours if concentrations <2 NG/ML. [id number] 07:01:00* Test Item Value Reference Range Interpretation Comments D-DIMER (test code = DDIMER) 5137 FEUng/mL 0-500 HH Critical values after the first occurrence are excluded fromcall documentation requirements for this analyte due to thepatient diagnosis or therapy protocols.THE CUT-OFF VALUE FOR EXCLUSION OF VTE = 500 FEU ng/mLNOTE: This method must be used with additional tests in theevaluation of VTE and should not be used to exclude VTE withpretest probability alone. CBC W/AUTO [id number] 06:49:00* Test Item Value Reference Range Interpretation Comments WHITE BLOOD CELL (test code = WBC) 9.7 K/mm3 4.1-12.1 N RED BLOOD CELL (test code = RBC) 3.45 M/mm3 3.8-5.5 L HEMOGLOBIN (test code = HGB) 9.2 G/DL 10.6-15.8 L HEMATOCRIT (test code = HCT) 31.1 % 31.8-47.4 L MEAN CELL VOLUME (test code = MCV) 90.1 fL 80.1-101.1 N MEAN CELL HGB (test code = MCH) 26.7 pg 25.3-35.3 N MEAN CELL HGB CONCETRATION (test code = MCHC) 29.6 G/DL 32.7-35. 1 L RED CELL DISTRIBUTION WIDTH (test code = RDW) 14.1 % 12.2-16. 4 N RED CELL DISTRIBUTION WIDTH (test code = RDW-SD) 46.1 fL 36.4- 46.3 N PLATELET COUNT (test code = PLT) 284 K/mm3 155-337 N MEAN PLATELET VOLUME (test code = MPV) 10.4 fL 6.8-11.2 N GRANULOCYTE % (test code = GR%) 76.5 % 37.8-82.6 N IMMATURE GRANULOCYTE % (test code = IG%) 0.4 % 0.0-2.0 N LYMPHOCYTE % (test code = LY%) 17.5 % 14.1-45.4 N MONOCYTE % (test code = MO%) 4.4 % 2.5-11.7 N EOSINOPHIL % (test code = EO%) 0.9 % 0.0-6.2 N BASOPHIL % (test code = BA%) 0.3 % 0.0-2.1 N NUCLEATED RBC % (test code = NRBC%) 0.0 /100WBC% 0.0-1.0 N GRANULOCYTE # (test code = GR#) 7.45 k/mm3 2.0-13.7 N IMMATURE GRANULOCYTE # (test code = IG#) 0.04 K/mm3 0.00-0.03 H LYMPHOCYTE # (test code = LY#) 1.70 K/mm3 0.6-3.8 N MONOCYTE # (test code = MO#) 0.43 K/mm3 0.11-0.59 N EOSINOPHIL # (test code = EO#) 0.09 K/mm3 0.0-0.4 N BASOPHIL # (test code = BA#) 0.03 K/mm3 0.0-0.1 N NUCLEATED RBC # (test code = NRBC#) 0.00 K/mm3 0.0-0.05 N BASIC METABOLIC [id number] 06:47:00* Test Item Value Reference Range Interpretation Comments SODIUM (test code = NA) 140.0 mmol/L 133-144 N POTASSIUM (test code = K) 4.6 mmol/L 3.5-5.1 N CHLORIDE (test code = CL) 112 mmol/L 95-105 H CARBON DIOXIDE (test code = CO2) 23 mmol/L 21-32 N ANION GAP (test code = GAP) 5.0 GAP calc 4.0-15.0 N GLUCOSE (test code = GLU) 109 MG/DL 70-110 N BLOOD UREA NITROGEN (test code = BUN) 31 MG/DL 7-18 H CREATININE (test code = CREAT) 1.69 MG/DL 0.55-1.30 H Results may be depressed if patient is takingN-Acetylcysteine (NAC) and Metamizole (Dipyrone). CALCIUM (test code = CA) 8.7 MG/DL 8.5-10.1 N INDEX HEMOLYSIS (test code = HEMINDEX) 1 NORMAL <10 MG Index/DL 1 N ORMAL INDEX ICTERIC (test code = ICTINDEX) 1 NORMAL <2 MG Index/DL 1 NORM AL INDEX LIPEMIA (test code = LIPINDEX) 1 NORMAL <50 MG Index/DL 1 NOR MAL [id number] 06:47:00* Test Item Value Reference Range Interpretation Comments PHOSPHOROUS (test code = PHOS) 2.7 MG/DL 2.5-4.9 N [id number] 06:47:00* Test Item Value Reference Range Interpretation Comments MAGNESIUM (test code = MAG) 2.4 MG/DL 1.6-2.6 N HIGH SENSITIVITY [id number] 06:44:00* Test Item Value Reference Range Interpretation Comments HIGH SENSITIVITY CRP (test code = CRPHS) 17.703 mg/dl 0.000-0.747 A DIMPLE COMPREHENSIVE [id number] 06:44:00* Test Item Value Reference Range Interpretation Comments AB CENTROMERE (test code = CENTRAB) AB CHROMATIN (test code = CHROMATAB) AB DNA DOUBLE STRAND (test code = DNADSAB) AB KATIE/SHIPPING MANAGER FRACTION (test code = RNPAB) AB KATIE/SM FRACTION (test code = SMAB) AB LIYA-1 (test code = JO1AB) AB SCLERODERMA (test code = SCLERAB) AB SJOGRENS A/SSA (test code = SJAAB) AB SJOGRENS B/SSB (test code = SJBAB) GLUCOSE BEDSIDE [id number] 00:30:00* Test Item Value Reference Range Interpretation Comments GLUCOSE BEDSIDE TESTING (test code = GLUBED) 139 MG/DL 70-119 H GLUCOSE BEDSIDE [id number] 20:29:00* Test Item Value Reference Range Interpretation Comments GLUCOSE BEDSIDE TESTING (test code = GLUBED) 144 MG/DL 70-119 H GLUCOSE BEDSIDE [id number] 19:37:00* Test Item Value Reference Range Interpretation Comments GLUCOSE BEDSIDE TESTING (test code = GLUBED) 183 MG/DL 70-119 H HIGH SENSITIVITY [id number] 19:34:00* Test Item Value Reference Range Interpretation Comments HIGH SENSITIVITY CRP (test code = CRPHS) 17.703 mg/dl 0.000-0.747 A DIMPLE COMPREHENSIVE [id number] 19:34:00* Test Item Value Reference Range Interpretation Comments DIMPLE COMMENT (test code = ANACOM) AB CENTROMERE (test code = CENTRAB) AB CHROMATIN (test code = CHROMATAB) AB DNA DOUBLE STRAND (test code = DNADSAB) AB KATIE/SHIPPING MANAGER FRACTION (test code = RNPAB) AB KATIE/SM FRACTION (test code = SMAB) AB LIYA-1 (test code = JO1AB) AB SCLERODERMA (test code = SCLERAB) AB SJOGRENS A/SSA (test code = SJAAB) AB SJOGRENS B/SSB (test code = SJBAB) GLUCOSE BEDSIDE [id number] 19:18:00* Test Item Value Reference Range Interpretation Comments GLUCOSE BEDSIDE TESTING (test code = GLUBED) 146 MG/DL 70-119 H UR SODIUM [id number] 16:37:00* Test Item Value Reference Range Interpretation Comments UR SODIUM RANDOM (test code = MONET) 36 mmol/L 40-200 L - US RETROPERITONEAL [id number] 15:12:00 Patient Name: ALEX FRASER Unit No: [id number] EXAMS: CPT CODE: [id number] US RETROPERITONEAL COM [id number] EXAMINATION: - US RETROPERITONEAL COM. LOCATION: S17. HISTORY: Elevated creatinine. COMPARISON: CT lumbar spine 05/17/20. FINDINGS: Sonographic evaluation of the kidneys and bladder was performed utilizing young scale, pulse Doppler and color flow imaging. The right kidney measures 9.5 cm and the left kidney measures 8.2 cm. The parenchymal echogenicity is within normal limits on both sides. There is no hydronephrosis. No calculus is identified. Urinary bladder is underdistended with volume of 32 mL. Nonvisualization of bilateral ur eteral jets. IMPRESSION: No hydronephrosis. at 1512 Reported an d signed by: Ele Pacheco MD CC: Josh solomon; Manuel Dill M.D. Technologist: Olga Santiago RDMS Trnscrbd D/ (1511) [email or web address] P robe: Orig Print D/T: S: 05/17/2020 (1515) Probe: TU [place] NAME: ALEX FRASER D[facility] PHYS: [facility] - [address] : 1945 AGE: 75 SEX: F [place], [place] [id number] LOC: JAVED Purcell PHONE # : [phone] EXAM DATE: 05/17/2020 STATUS: ADM IN FAX #: RAD NO: Page 1 Signed Re port URINALYSIS [id number] 12:31:00* Test Item Value Reference Range Interpretation Comments UA COLOR (test code = COLU) YELLOW DESCRIPT YELLOW UA APPEARANCE (test code = APPU) CLEAR DESCRIPT CLEAR UA GLUCOSE DIPSTICK (test code = DGLUU) NORMAL (0) mg/dL 0 (NORMAL) UA BILIRUBIN DIPSTICK (test code = BILU) NEGATIVE (0.0) mg/dL (NEG) 0 UA KETONE DIPSTICK (test code = KETU) TRACE mg/dL (NEG) 0 UA SPECIFIC GRAVITY (test code = SGU) 1.040 SG 1.001-1.035 A UA BLOOD DIPSTICK (test code = CARMELO) 0.20 (2+) mg/dL 0 (NEG) A UA PH DIPSTICK (test code = DAMI) 5.5 pH UNITS 4.6-8.0 UA PROTEIN DIPSTICK (test code = PROU) 30 (1+) mg/dL <30 (1+) A UA UROBILINIOGEN DIPSTICK (test code = URO) NORMAL (0) mg/Dl <2.0 ( 1+) UA NITRITE DIPSTICK (test code = KATHLEEN) NEGATIVE (0) SCREEN NEG UA LEUKOCYTE ESTERASE DIPSTICK (test code = LEUU) NEGATIVE (0) L euk/mcL (NEG) 0 UA WBC (test code = WBCU) 3-5 #WBC/HPF 0-3 UA RBC (test code = RBCU) 5-10 #RBC/HPF 0-3 A UA BACTERIA (test code = BACU) MANY /HPF NONE-FEW A UA SQUAMOUS CELLS (test code = SQU) RARE >0 /UL NONE-SQepi UA CELLULAR CAST (test code = CELLUC) 0-5 #/LPF NONE UA GRANULAR CAST (test code = GRANU) 0-5 #/LPF NONE UA MUCUS (test code = MUCU) RARE /LPF NONE UA AMORPHOUS SEDIMENT (test code = AMORU) FEW #/mcL NONE-FEW PROCALCITONIN (PCT)2020-05-17 10:28:00* Test Item Value Reference Range Interpretation Comments PROCALCITONIN (PCT) (test code = PROCAL) 0.32 NG/ML 0.00-0.10 H PROCALCITONIN (PCT) NORMAL RANGE (ADULT) <0.05 NG/ML-normal <0.50 NG/ML-low risk of severe sepsis and/or septic shock >2.00 NG/ML-high risk of severe sepsis and/or septic shcock Concentrations of <0.5 ng/mL do not exclude an infection.Localized infections (without systemic signs) or a systemicinfection in its initial stages (<6 hours) can be associatedwith such low concentrations. It is recommended to retestPCT within 6-24 hours if concentrations <2 NG/ML. - CT L-SPINE W/O [id number] 09:29:00 Patient Name: ALEX FRASER Unit No: [id number] EXAMS: CPT CODE: [id number] CT L-SPINE W/O CONTRAST [id number] Computed tomography lumbar spine INDICATION: Bilateral lower extremity weakness LOCATION: T18 Transaxial [address] images of the lumbar spine were obtained from T12 through S1 in 1.25 mm increments. The study was reviewed in bone and soft tissue windows. Sagittal reconstruction was obtained. Up to date CT and radiation dose reduction techniques were utilized. Automatic exposure control was also used. There is contrast in the kidneys and ureters from a prior study. Mild anterolisthesis of L4 on L5 likely secondary to ligamentous laxity. No compression deformity, fracture or spondylolysis any level. The facet joints are sclerotic, normally positioned. Multilevel disc bulging with resultant stenosis of the central canal. This is most severe at L4-5, exacerbated by the anterolisthesis along with buckling of ligamenta flava and facet hyp ertrophy. IMPRESSION: 1. No evidence of fracture, compr ession deformity or traumatic subluxation. 2. 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 at 0929 Reported and signed by: Ck Lin D.O. CC: Josh Storey Dictated Date/Time: 05/17/2020 (928) Techno logist: Brenda SageSarah BeltreAmelia CTDI: 14.08 DLP: 356.69 Trnscrpt: 05/17 (928) Emma T[facility] Mcfadden NAME: ALEX [facility]QUE[facility] PHYS: SRIKANTHREBECCANazainn Josh Storey MD [address] [place], [place] [address]VD DO B: 1945 AGE: 75 SEX: SHITAL VEGA [facility] LOC: JAVED 9 PHONE #: [phone] EXAM DATE: 05/17/2020 STATUS: ADM IN FAX #: [phone] RAD #: D/C DT PAGE 1 Signed Report Patient Name: ALEX FRASER Unit No: [id number] EXAMS: CPT CODE: [id number] CT L-SPINE W/O CONTRAST [id number] < Continued> Orig Print D/T: S: 05/17/2020 (931) TU Mcfadden NAME: ALEX [facility] PHYS: NELANazanin De Paz Josh Storey MD [address] [place] [address] BLVD : 1945 AGE: 75 SEX: SHITAL VEGA [facility] LOC: JAVED 9 PHONE #: [phone] EXAM DATE: 05/17/2020 STATUS: ADM IN FAX #: [phone] RAD #: D/C DT PAGE 2 Signed Report COVID 19 INHOUSE [id number] 09:15:00* Test Item Value Reference Range Interpretation Comments COVID 19 INHOUSE AG (test code = [id number]) Negative Neg ---COVID INTERPRETATION--- A negative result is presumptive and should be confirmedwith an FDA authorized molecular assay, if necessary forpatient management. A positive result does not rule out co-infections withother pathogens. This test detects both viable (live) and non-viable,SARS-CoV, and SARS-CoV-2. Test performance depends on theamount of virus (antigen) in the sample. Testing Criteria: OtherOther: abn CXR- XR CHEST 1 [id number] 08:48:00 FAX: Hunter Brenner MD [phone] [place]: St: ADM FAX: Josh Riley Sa, MD [phone] Patient Name: ALEX FRASER Unit No: [id number] EXAMS: CPT CODE: [id number] XR CHEST 1 V 11169 REASON FOR EXAM: Leukocytosis, chest pain. CHARITY RISON: July 15, 2015. Chest, portable single frontal view. The lungs are slightly less well-inflated and clear. Heart size is normal. No effusion or pneumothorax can be seen. Osseous st ructures appear to be intact. IMPRESSION: No acute cardiopulmona ry disease. Location: [facility] at 084 8 Reported and signed by: Dimitris Lopez M.D CC: Josh Storey Dictated Date/Time: 05/17/2020 (847)Technologist: Vishnu Monzon Transcribed Date/Time: 05/17/2020 (847) By: [email or web address] Orig Print D/T: S: 05/17/2020 (0851) [facility] NAME: ALEX FRASER ED[facility] PHYS: SANLU.Lazara Josh Storey MD [address] [facility] [address] : 1945 AGE: 75 SEX: [place], [place] [address] [facility] PHONE #: [phone] EXAM DATE: 05/17/2020 STATUS: ADM IN FAX #: [phone] RAD NO: DC Dt: PAGE 1 Signed Report CBC W/AUTO [id number] 08:27:00 * Test Item Value Reference Range Interpretation Comments WHITE BLOOD CELL (test code = WBC) 14.7 K/mm3 4.1-12.1 H RED BLOOD CELL (test code = RBC) 4.06 M/mm3 3.8-5.5 N HEMOGLOBIN (test code = HGB) 10.9 G/DL 10.6-15.8 N HEMATOCRIT (test code = HCT) 35.2 % 31.8-47.4 N MEAN CELL VOLUME (test code = MCV) 86.7 fL 80.1-101.1 N MEAN CELL HGB (test code = MCH) 26.8 pg 25.3-35.3 N MEAN CELL HGB CONCETRATION (test code = MCHC) 31.0 G/DL 32.7-35. 1 L RED CELL DISTRIBUTION WIDTH (test code = RDW) 13.7 % 12.2-16. 4 N RED CELL DISTRIBUTION WIDTH (test code = RDW-SD) 43.0 fL 36.4- 46.3 N PLATELET COUNT (test code = PLT) 257 K/mm3 155-337 N MEAN PLATELET VOLUME (test code = MPV) 10.2 fL 6.8-11.2 N GRANULOCYTE % (test code = GR%) 88.1 % 37.8-82.6 H IMMATURE GRANULOCYTE % (test code = IG%) 0.8 % 0.0-2.0 N LYMPHOCYTE % (test code = LY%) 8.7 % 14.1-45.4 L MONOCYTE % (test code = MO%) 2.3 % 2.5-11.7 L EOSINOPHIL % (test code = EO%) 0.0 % 0.0-6.2 N BASOPHIL % (test code = BA%) 0.1 % 0.0-2.1 N NUCLEATED RBC % (test code = NRBC%) 0.0 /100WBC% 0.0-1.0 N GRANULOCYTE # (test code = GR#) 12.91 k/mm3 2.0-13.7 N IMMATURE GRANULOCYTE # (test code = IG#) 0.12 K/mm3 0.00-0.03 H LYMPHOCYTE # (test code = LY#) 1.28 K/mm3 0.6-3.8 N MONOCYTE # (test code = MO#) 0.34 K/mm3 0.11-0.59 N EOSINOPHIL # (test code = EO#) 0.00 K/mm3 0.0-0.4 N BASOPHIL # (test code = BA#) 0.02 K/mm3 0.0-0.1 N NUCLEATED RBC # (test code = NRBC#) 0.00 K/mm3 0.0-0.05 N SED [id number] 08:27:00* Test Item Value Reference Range Interpretation Comments SED RATE (test code = SEDW) 74 mm/hr 0-30 H GLYCOSYLATED HEMOGLOBIN (HA1C)2020-05-17 07:50:00* Test Item Value Reference Range Interpretation Comments GLYCOSYLATED HEMOGLOBIN (HA1C) (test code = GLYHGB) 7.0 % A1C 4. 2-6.3 H ESTIMATED AVERAGE [id number] 07:50:00* Test Item Value Reference Range Interpretation Comments ESTIMATED AVERAGE GLUCOSE (test code = EAG) 154 MG/DLest LIPID PROFILE (CORONARY RISK)2020-05-17 07:35:00* Test Item Value Reference Range Interpretation Comments TRIGLYCERIDES (test code = TRIG) 93 MG/DL 0-150 N Results may be depressed if patient is takingN-Acetylcysteine (NAC) and Metamizole (Dipyrone). CHOLESTEROL (test code = CHOL) 120 MG/DL 133-200 L CHOLESTEROL/HDL RATIO (test code = CHOLHDL) 3.15 RATIO >0 REFERENCE RANGE: MALE FEMALE 1/2 AVG RISK 3.43 3.27 AVG RISK 4.97 4.44 2X AVG RISK 9.55 7.05 3X AVG RISK 23.39 11.04 HDL CHOLESTEROL (test code = HDL) 38 MG/DL 40-59 L Results maybe depressed if patient is taking Metamizole(Dipyrone). NON-HDL CHOLESTEROL (test code = NHDL) 82 mg/dL <130 Patients with CHD or CHD risk LDL: <70 mg/dL nonHDL: <100 mg/dLPatients with 2+ risk factors LDL: <130 mg/dL nonHDL: <160 mg/dLPatients with 0-1 risk factors LDL: <160 mg/dL nonHDL: <190 mg/dL LIPOPROTEIN LDL (test code = LDL) 63 MG/DL 0-129 N LDL/HDL (test code = LDL/HDL) 1.65 Ratio 1.48-3.22 Avg N LDL/HDL RISK ASSESSMENT1.47 One-half average3.22 Average5.03 Two times average6.14 Three times average INDEX HEMOLYSIS (test code = HEMINDEX) 1 NORMAL <10 MG Index/DL 1 N ORMAL INDEX ICTERIC (test code = ICTINDEX) 1 NORMAL <2 MG Index/DL 1 NORM AL INDEX LIPEMIA (test code = LIPINDEX) 1 NORMAL <50 MG Index/DL 1 NOR MAL BASIC METABOLIC [id number] 07:35:00* Test Item Value Reference Range Interpretation Comments SODIUM (test code = NA) 136.0 mmol/L 133-144 N POTASSIUM (test code = K) 4.8 mmol/L 3.5-5.1 N CHLORIDE (test code = CL) 109 mmol/L 95-105 H CARBON DIOXIDE (test code = CO2) 22 mmol/L 21-32 N ANION GAP (test code = GAP) 5.0 GAP calc 4.0-15.0 N GLUCOSE (test code = GLU) 149 MG/DL 70-110 H BLOOD UREA NITROGEN (test code = BUN) 30 MG/DL 7-18 H CREATININE (test code = CREAT) 1.76 MG/DL 0.55-1.30 H Results may be depressed if patient is takingN-Acetylcysteine (NAC) and Metamizole (Dipyrone). CALCIUM (test code = CA) 8.7 MG/DL 8.5-10.1 N INDEX HEMOLYSIS (test code = HEMINDEX) 1 NORMAL <10 MG Index/DL 1 N ORMAL INDEX ICTERIC (test code = ICTINDEX) 1 NORMAL <2 MG Index/DL 1 NORM AL INDEX LIPEMIA (test code = LIPINDEX) 1 NORMAL <50 MG Index/DL 1 NOR MAL [id number] 07:35:00* Test Item Value Reference Range Interpretation Comments MAGNESIUM (test code = MAG) 2.5 MG/DL 1.6-2.6 N THYROID STIMULATING [id number] 07:35:00* Test Item Value Reference Range Interpretation Comments THYROID STIMULATING HORMONE (test code = TSH) 0.439 mc IU/ML 0.340- 4.820 N PT AND [id number] 07:25:00* Test Item Value Reference Range Interpretation Comments PT PATIENT (test code = PTP) 13.3 SECONDS 9.4-12.5 H INTERNATIONAL NORMAL RATIO (test code = INR) 1.15 INR Unit 0.88-1.1 3 H Therapeutic range for INR is dependent upon the situation.2.0-3.0 Prophylaxis / venous thromboembolism, Treatment of DVT, Acute myocardial infarction stroke prevention, Systemic embolism prevention in fibrillation3.0-4.5 AMI recurrence prevention, Systemic embolism prevention in prosthetic heart 3.0-5.4 AMI mortality reduction THROMBOPLASTIN TIME PARTIAL (test code = PTT) 28.1 SECONDS 24-37.7 N THERAPEUTIC RANGE FOR UNFRACTIONATED HEPARIN = 50.5-83.6 SEC This test is not recommended to monitor low molecularweight heparin or danaparoid. Order LMWH test COLLECTION THROUGH LINES THAT HAVE BEEN PREVIOUSLY FLUSHEDWITH HEPARIN SHOULD BE AVOIDED DUE TO POSSIBLE HEPARINCONTAMINATION [id number] 07:25:00* Test Item Value Reference Range Interpretation Comments D-DIMER (test code = DDIMER) 6097 FEUng/mL 0-500 HH ON 05/17/20 AT 0725, B.LAB.BRD CALLED TO ALIA LUCERO. The report was confirmed by read back protocols Y,N: Y.THE CUT-OFF VALUE FOR EXCLUSION OF VTE = 500 FEU ng/mLNOTE: This method must be used with additional tests in theevaluation of VTE and should not be used to exclude VTE withpretest probability alone. CBC W/AUTO [id number] 07:00:00* Test Item Value Reference Range Interpretation Comments WHITE BLOOD CELL (test code = WBC) 14.7 K/mm3 4.1-12.1 H RED BLOOD CELL (test code = RBC) 4.06 M/mm3 3.8-5.5 N HEMOGLOBIN (test code = HGB) 10.9 G/DL 10.6-15.8 N HEMATOCRIT (test code = HCT) 35.2 % 31.8-47.4 N MEAN CELL VOLUME (test code = MCV) 86.7 fL 80.1-101.1 N MEAN CELL HGB (test code = MCH) 26.8 pg 25.3-35.3 N MEAN CELL HGB CONCETRATION (test code = MCHC) 31.0 G/DL 32.7-35. 1 L RED CELL DISTRIBUTION WIDTH (test code = RDW) 13.7 % 12.2-16. 4 N RED CELL DISTRIBUTION WIDTH (test code = RDW-SD) 43.0 fL 36.4- 46.3 N PLATELET COUNT (test code = PLT) 257 K/mm3 155-337 N MEAN PLATELET VOLUME (test code = MPV) 10.2 fL 6.8-11.2 N GRANULOCYTE % (test code = GR%) 88.1 % 37.8-82.6 H IMMATURE GRANULOCYTE % (test code = IG%) 0.8 % 0.0-2.0 N LYMPHOCYTE % (test code = LY%) 8.7 % 14.1-45.4 L MONOCYTE % (test code = MO%) 2.3 % 2.5-11.7 L EOSINOPHIL % (test code = EO%) 0.0 % 0.0-6.2 N BASOPHIL % (test code = BA%) 0.1 % 0.0-2.1 N NUCLEATED RBC % (test code = NRBC%) 0.0 /100WBC% 0.0-1.0 N GRANULOCYTE # (test code = GR#) 12.91 k/mm3 2.0-13.7 N IMMATURE GRANULOCYTE # (test code = IG#) 0.12 K/mm3 0.00-0.03 H LYMPHOCYTE # (test code = LY#) 1.28 K/mm3 0.6-3.8 N MONOCYTE # (test code = MO#) 0.34 K/mm3 0.11-0.59 N EOSINOPHIL # (test code = EO#) 0.00 K/mm3 0.0-0.4 N BASOPHIL # (test code = BA#) 0.02 K/mm3 0.0-0.1 N NUCLEATED RBC # (test code = NRBC#) 0.00 K/mm3 0.0-0.05 N SED [id number] 07:00:00* Test Item Value Reference Range Interpretation Comments SED RATE (test code = SEDW) mm/hr 0-30 TROPONIN I [id number] 06:20:00* Test Item Value Reference Range Interpretation Comments TROPONIN I RAPID (test code = TROPIRAP) 0.00 NG/ML 0.00-0.07 N An elevated troponin value alone is not sufficient todiagnose a myocardial infarction. Rather, the patient'sclinical presentation (history, physical exam) and ECGshould be used in conjunction with troponin in thediagnostic evaluation of suspected myocardial infarction. Aserial sampling protocol is recommended to facilitate theidentification of temporal changes in troponin levelscharacteristic of MD. [id number] 02:06:00* Test Item Value Reference Range Interpretation Comments TROPONIN-I (test code = TROPI) < 0.015 NG/ML 0.000-0.045 N INTERPRET WITH CAUTION, THIS VALUE EXCEEDS THE LOWER LIMITOF LINEARITY VERIFICATION ESTABLISHED BY THE LABORATORY.An elevated troponin value alone is not sufficient todiagnose a myocardial infarction. Rather, the patient'sclinical presentation (history, physical exam) and ECGshould be used in conjunction with troponin in thediagnostic evaluation of suspected myocardial infarction. Aserial sampling p rotocol is recommended to facilitate theidentification of temporal changes in troponin levelscharacteristic of MD. COMPREHENSIVE METABOLIC [id number] 22:01:00* Test Item Value Reference Range Interpretation Comments SODIUM (test code = NA) 135.0 mmol/L 133-144 N POTASSIUM (test code = K) 4.8 mmol/L 3.5-5.1 N CHLORIDE (test code = CL) 108 mmol/L 95-105 H CARBON DIOXIDE (test code = CO2) 23 mmol/L 21-32 N ANION GAP (test code = GAP) 4.0 GAP calc 4.0-15.0 N GLUCOSE (test code = GLU) 169 MG/DL 70-110 H BLOOD UREA NITROGEN (test code = BUN) 26 MG/DL 7-18 H GLOMERULAR FILTRATION RATE (test code = GFR) 28 estGFR >60 L The estimated glomerular filtration rate is computed usingpatient race, age, sex, and serum creatinine. If any of theneeded data elements are missing the Laboratory can notcompute an estimation of the glomerular filtration rate.The GFR value units = ml/min/1.73 meter squared. EstimatedGFR values above 60 should be interpreted as >60, not anexact number.--- DRUG DOSAGE ALERT --- Drug dosage adjustments utilize different calculationparameters. CREATININE (test code = CREAT) 1.78 MG/DL 0.55-1.30 H Results may be depressed if patient is takingN-Acetylcysteine (NAC) and Metamizole (Dipyrone). TOTAL PROTEIN (test code = PROT) 7.3 G/DL 6.4-8.2 N ALBUMIN (test code = ALB) 2.6 G/DL 3.4-5.0 L ALBUMIN/GLOBULIN RATIO (test code = A/G) 0.6 RATIO 1.2-2.2 L CALCIUM (test code = CA) 8.0 MG/DL 8.5-10.1 L BILIRUBIN TOTAL (test code = BILT) 0.56 MG/DL 0.00-1.00 N BILIRUBIN DIRECT (test code = BILD) 0.30 MG/DL 0.00-0.30 N BILIRUBIN INDIRECT (test code = BILIND) 0.26 MG/DL 0.2-1.3 N SGOT/AST (test code = AST) 58 Unit/L 15-37 H SGPT/ALT (test code = ALT) 36 Unit/L 12-78 N ALKALINE PHOSPHATASE TOTAL (test code = ALKP) 119 Unit/L 45-117 H INDEX HEMOLYSIS (test code = HEMINDEX) 1 NORMAL <10 MG Index/DL 1 N ORMAL INDEX ICTERIC (test code = ICTINDEX) 1 NORMAL <2 MG Index/DL 1 NORM AL INDEX LIPEMIA (test code = LIPINDEX) 1 NORMAL <50 MG Index/DL 1 NOR MAL [id number] 22:01:00* Test Item Value Reference Range Interpretation Comments TROPONIN-I (test code = TROPI) < 0.015 NG/ML 0.000-0.045 N INTERPRET WITH CAUTION, THIS VALUE EXCEEDS THE LOWER LIMITOF LINEARITY VERIFICATION ESTABLISHED BY THE LABORATORY.An elevated troponin value alone is not sufficient todiagnose a myocardial infarction. Rather, the patient'sclinical presentation (history, physical exam) and ECGshould be used in conjunction with troponin in thediagnostic evaluation of suspected myocardial infarction. Aserial sampling p rotocol is recommended to facilitate theidentification of temporal changes in troponin levelscharacteristic of MD. COMPREHENSIVE METABOLIC [id number] 21:56:00* Test Item Value Reference Range Interpretation Comments SODIUM (test code = NA) 135.0 mmol/L 133-144 N POTASSIUM (test code = K) 4.8 mmol/L 3.5-5.1 N CHLORIDE (test code = CL) 108 mmol/L 95-105 H CARBON DIOXIDE (test code = CO2) 23 mmol/L 21-32 N ANION GAP (test code = GAP) 4.0 GAP calc 4.0-15.0 N GLUCOSE (test code = GLU) 169 MG/DL 70-110 H BLOOD UREA NITROGEN (test code = BUN) 26 MG/DL 7-18 H GLOMERULAR FILTRATION RATE (test code = GFR) 28 estGFR >60 L The estimated glomerular filtration rate is computed usingpatient race, age, sex, and serum creatinine. If any of theneeded data elements are missing the Laboratory can notcompute an estimation of the glomerular filtration rate.The GFR value units = ml/min/1.73 meter squared. EstimatedGFR values above 60 should be interpreted as >60, not anexact number.--- DRUG DOSAGE ALERT --- Drug dosage adjustments utilize different calculationparameters. CREATININE (test code = CREAT) 1.78 MG/DL 0.55-1.30 H Results may be depressed if patient is takingN-Acetylcysteine (NAC) and Metamizole (Dipyrone). TOTAL PROTEIN (test code = PROT) G/DL 6.4-8.2 ALBUMIN (test code = ALB) 2.6 G/DL 3.4-5.0 L ALBUMIN/GLOBULIN RATIO (test code = A/G) RATIO 1.2-2.2 CALCIUM (test code = CA) 8.0 MG/DL 8.5-10.1 L BILIRUBIN TOTAL (test code = BILT) MG/DL 0.00-1.00 BILIRUBIN DIRECT (test code = BILD) 0.30 MG/DL 0.00-0.30 N BILIRUBIN INDIRECT (test code = BILIND) MG/DL 0.2-1.3 SGOT/AST (test code = AST) 58 Unit/L 15-37 H SGPT/ALT (test code = ALT) 36 Unit/L 12-78 N ALKALINE PHOSPHATASE TOTAL (test code = ALKP) Unit/L 45-117 INDEX HEMOLYSIS (test code = HEMINDEX) 1 NORMAL <10 MG Index/DL 1 N ORMAL INDEX ICTERIC (test code = ICTINDEX) 1 NORMAL <2 MG Index/DL 1 NORM AL INDEX LIPEMIA (test code = LIPINDEX) 1 NORMAL <50 MG Index/DL 1 NOR MAL [id number] 21:56:00* Test Item Value Reference Range Interpretation Comments TROPONIN-I (test code = TROPI) NG/ML 0.000-0.045 CBC W/AUTO [id number] 21:43:00* Test Item Value Reference Range Interpretation Comments WHITE BLOOD CELL (test code = WBC) 13.4 K/mm3 4.1-12.1 H RED BLOOD CELL (test code = RBC) 3.96 M/mm3 3.8-5.5 N HEMOGLOBIN (test code = HGB) 10.8 G/DL 10.6-15.8 N HEMATOCRIT (test code = HCT) 34.8 % 31.8-47.4 N MEAN CELL VOLUME (test code = MCV) 87.9 fL 80.1-101.1 N MEAN CELL HGB (test code = MCH) 27.3 pg 25.3-35.3 N MEAN CELL HGB CONCETRATION (test code = MCHC) 31.0 G/DL 32.7-35. 1 L RED CELL DISTRIBUTION WIDTH (test code = RDW) 13.7 % 12.2-16. 4 N RED CELL DISTRIBUTION WIDTH (test code = RDW-SD) 43.8 fL 36.4- 46.3 N PLATELET COUNT (test code = PLT) 230 K/mm3 155-337 N MEAN PLATELET VOLUME (test code = MPV) 9.9 fL 6.8-11.2 N GRANULOCYTE % (test code = GR%) 91.3 % 37.8-82.6 H IMMATURE GRANULOCYTE % (test code = IG%) 0.6 % 0.0-2.0 N LYMPHOCYTE % (test code = LY%) 6.7 % 14.1-45.4 L MONOCYTE % (test code = MO%) 1.3 % 2.5-11.7 L EOSINOPHIL % (test code = EO%) 0.0 % 0.0-6.2 N BASOPHIL % (test code = BA%) 0.1 % 0.0-2.1 N NUCLEATED RBC % (test code = NRBC%) 0.0 /100WBC% 0.0-1.0 N GRANULOCYTE # (test code = GR#) 12.18 k/mm3 2.0-13.7 N IMMATURE GRANULOCYTE # (test code = IG#) 0.08 K/mm3 0.00-0.03 H LYMPHOCYTE # (test code = LY#) 0.90 K/mm3 0.6-3.8 N MONOCYTE # (test code = MO#) 0.18 K/mm3 0.11-0.59 N EOSINOPHIL # (test code = EO#) 0.00 K/mm3 0.0-0.4 N BASOPHIL # (test code = BA#) 0.02 K/mm3 0.0-0.1 N NUCLEATED RBC # (test code = NRBC#) 0.00 K/mm3 0.0-0.05 N - DUP VEIN [id number] 11:23:00 Name: ALEX FRASER [facility] : 1945 Age/S: 72 / F [address] [place] [address] Unit #: [id number] Loc: [place] [address] Phys: Desi Eugene APPLICATION DEVELOPMENT LIAISON Acct: [id number] Dis Date: Status: UNK PHONE #: [phone] Exam Date: 07/05/2017 1119 FAX #: [phone] Reason: r/o dvt EXAMS: CPT CODE: [id number] DUP VEIN [place] [address] Procedure: Bilateral Lower Extremity Doppler Venous Ultrasound. Clinical Indication: Elevated d-dimer, left arm heaviness, sudden onset of shortness of breath. Comparison: CT pulmonary angiogram 07/04/2017. TECHNIQUE: Sonographic evaluation of the bilateral lower extremity veins was performed using high resolution B-mode, pulse and color Doppler imaging. FINDINGS: RIGHT: The common femoral, femoral, popliteal and visualized calf veins are patent. Normal venous waveforms. The saphenofemoral junction is unremarkable. LEFT: The common femoral, femoral, popliteal and visualized calf veins are patent. Normal venous waveforms. The saphenofemoral junction is unremarkable. IMPRESSION: No deep venous thrombosis. SL: CYP-H at 1123 Reported and signed by: Stevo Preciado M.D. CC: Desi Eugene APPLICATION DEVELOPMENT LIAISON; Andrew Milton MD; Roe Saini M.D. Technologist: Carlitos Brewster Trnscb Date/Time: 07/05/2017 (1123) Bon Orig Print D/T: S: 07/05/2017 (1126) Probe: PAGE 1 Signed Report - CT C-SPINE W/O [id number] 17:09:00 Name: ALEX FRASER [facility] : 1945 Age/S: 72 / F [address] [place] [address] Unit #: [id number] Loc: [place] [address] Phys: Desi Eugene NP Acct: [id number] Dis Date: Status: UNK PHONE #: [phone] Exam Date: 07/04/2017 1555 FAX #: [phone] Reason: NECK PAIN EXAMS: CPT CODE: [id number] CT C-SPINE W/O CONT 68268 Clinical Indication: 72-year-old female with neck pain; Comparison: None Technique: Multi-detector CT imaging of the cervical spine is performed. Coronal and sagittal reconstructions were obtained. CT Radiation Dose DLP 104.4 mGy-cm FINDINGS: ALIGNMENT AND GENERAL ASSESSMENT: There is normal alignment of the cervical spine. There are no fractures or subluxations. The craniocervical junction is normal. The atlanto-dental alignment appears unremarkable. The posterior elements and spinous processes are unremarkable. The facet joint, spinolaminar and spinous process alignment are normal. DISK SPACES AND SOFT TISSUES: The prevertebral soft tissues are normal. C2-3: Unremarkable. C3-4: Minimal left uncovertebral joint hypertrophy. Small posterior disc protrusion without significant spinal canal stenosis. C4-5: Small posterior disc protrusion without significant spinal canal stenosis. C5-6: Mild disc space narrowing. Mild right uncovertebral joint hypertrophy. Broad-based disc osteophyte complex without significant spinal canal stenosis. C6-7: Unremarkable. C7-T1: Unremarkable. MRI is the gold standard to assess for disk disease. VISUALIZED LUNG APICES: Unremarkable. IMPRESSION: 1. No fractures or subluxations of the cervical spine. 2. Mild degenerative changes as described above. SL: [id number] PAGE 1 Signed Report (CONTINUED) Name: ALEX FRASER [facility] : 1945 Age/S: 72 / F [address] [place] [address] Unit #: [id number] Loc: [place] [address] Phys: Desi Eugene APPLICATION DEVELOPMENT LIAISON Acct: [id number] Dis Date: S tatus: UNK PHONE #: [phone] Exam Da te: 07/04/2017 1555 FAX #: [phone] Reason: NECK P AIN EXAMS: CPT CODE: [id number] CT C-SPINE W/O CONT 56461 <Continued> at 1709 Reported and signed by: Marcelo Durbin M.D. CC: Desi Eugene NP; Andrew Milton MD; Roe Saini M.D. Technologist:RT Shaun(R)(CT) CTDI: DLP: Trnscb Date/Time: 07/04/2017 (1709) [email or web address] Orig Print D/T: S: 07/04/2017 (9554) PAGE 2 Signed Report - CT ANGIO [id number] 16:22:00 Name: ALEX FRASER [facility] : 1945 Age/S: 72 / F [address] [place] [address] Unit #: [id number] Loc: [place] [address] Phys: Desi Eugene APPLICATION DEVELOPMENT LIAISON Acct: [id number] Dis Date: Status: UNK PHONE #: [phone] Exam Date: 07/04/2017 1556 FAX #: [phone] Reason: R/O PE PT WITH SUDDEN SOB EXAMS: CPT CODE: [id number] CT ANGIO CHEST [address] CT PULMONARY ANGIOGRAM HISTORY: R/O PE PT WITH SUDDEN SOB. COMPARISON: None available. TECHNIQUE: Following IV contrast, CT pulmonary angiogram protocol was utilized. Source images and reconstructions (including 3D reconstructions) reviewed. Patient administered Isovue 300, 100 mL IV. FINDINGS: PULMONARY ARTERIES: No filling defects to suggest an acute pulmonary embolism identified. LUNGS: 7 mm nodule posterior medial aspect base left lower lobe. Smaller additional peripheral pleural-parenchymal changes seen bilaterally measuring up to 4 mm. No consolidation, effusion, or pneumothorax. Mild hazy groundglass changes in the lung bases nonspecific. MEDIASTINUM: Cardiac structures within normal limits. No adenopathy. Thoracic aorta unremarkable. UPPER ABDOMEN: Visualized upper abdominal viscera are normal. MUSCULOSKELETAL: The skeleton is intact. No aggressive bony lesions. IMPRESSION: 1. No evidence for acute PE. 2. No evidence for acute cardiopulmonary disease. 3. 7 mm nodule base left lower lobe. A few additional smaller nonspecific peripheral pleural-parenchymal nodular changes present. If the patient has a history of smoking or ot her risk factor to increase their risk of malignancy, then a follow-up c hest CT in 3 months is recommended. If the patient has no such risk fact ors, then a follow-up chest CT in 6 months is recommended. 4. Mild nonspecific groundglass changes bilateral lower lobes may be chron ic. Pneumonitis difficult to exclude. SL: [id number] PAGE 1 Si gned Report (CONTINUED) Name: ALEX FRASER [facility] : 1945 Age/S: 72 / F [address] [facility] Unit #: [id number] Loc: [place] [address] Phys: Desi Eugene NP Acct: [id number] Dis Date: Status: UNK PHONE #: [phone] Exam Date: 07/04/2017 1556 FAX #: [phone] Reason: R/O PE PT WITH SUDDE N SOB EXAMS: CPT CODE: [id number] CT ANGIO CHEST 52501 <Continued> at 9645 Reported and signed by: Maico Pryor M.D. CC: Desi Eugene NP; Andrew Milton MD; Roe Saini M.D. Technologist:RT Shaun(R)(CT) CTDI: DLP: Trnscb Date/Time: 07/04/2017 (8942) [email or web address] Orig Print D/T: S: 07/04/2017 (1650) PAGE 2 Signed Report - CT HEAD/BRAIN W/O [id number] 00:15:00 Name: ALEX FRASER [facility] [place] : 1945 Age/S: 72 / F [address] [place] [address] Unit #: [id number] Loc: [place] [address] Phys: Juma Morales Acct: [id number] Dis Date: Status: UNK PHONE #: [phone] Exam Date: 07/03/2017 2350 FAX #: [phone] Reason: left arm heaviness EXAMS: CPT CODE: [id number] CT HEAD/BRAIN W/O CONT 32169 CT head without contrast Clinical Indication: Left arm heaviness. Comparison: None. TECHNIQUE: CT images were obtained from the foramen magnum to the vertex without the use of intravenous contrast on a multidetector CT. CT imaging was performed with exposure control parameters to reduce radiation dose. Coronal and sagittal reconstructions were obtained. CT radiation dose DLP: 844.60 mGy-cm FINDINGS: There is residual contrast in the intracranial vasculature from previous imaging procedure. Mild white matter changes are most consistent with chronic small vessel ischemic disease. No intra or extra-axial fluid or blood collection is seen. No mass or midline shift. Ventricles and sulci are of normal size and configuration. Calvarium is intact. Visualized paranasal sinuses and mastoid air cells are clear. IMPRESSION: No acute intracranial abnormality. Mild chronic small vessel ischemic disease. SL: SGHORI-H at 0015 Reported and signed by: Alivia Pandya M.D. CC: Juma Saini M.D. Technologist:Gill Reece, RT(R) CTDI: DLP: Trnscb Date/Time: 07/04/2017 (0015) [email or web address] Orig Print D/T: S: 07/04/2017 (0018) PAGE 1 Signed Report - XR CHEST 1 [id number] 23:14:00 FAX: Juma Ying DO [phone] [place]: [address]: UNK Name: ALEX DO [facility] : [birth year] Age/S: 72/F [address] [place] [address] Unit #: [id number] Loc: [place] [address] Phys: Juma Morales DO Acct: [id number] Dis Date: Status: UNK PHONE #: [phone] Exam Date: 07/03/20172309 FAX #: [phone] Reason: abd pain EXAMS: CPT CODE: [id number] XR CHEST 1 V 89069 CHEST RADIOGRAPH ONE VIEW 7 AT 2225 HOURS. CLINICAL HISTORY: Abdominal pain, vomiting, left arm tightness and shortness of breath. COMPARISON STUDIES: V isualized chest in the abdomen CT from the same day. FINDING S: One view of the chest was obtained. Enlarged cardiac silhouette with central crowding of the pulmonary vasculature and ill-defined bibasila r pulmonary opacities. No pleural effusion. No pneumothorax or pneumomed iastinum. No destructive bone lesion. Nonobstructive bowel gas pattern. IMPRESSION: 1. Enlarged cardiac silhouette with central pulmonary vascular congestion and ill-defined pulmonary opacities, proba fadi representing atelectasis and or secretions. 2. Nonobstructiv e bowel gas pattern. SL: TR-H Electronicall y Signed by Rosalie Cabrera on 07/03/2017 at 2314 Reported and signed by: Odilon Lewis M.D. CC: Juma Morales DO Technologist: RT Milad(Yudith) Trnscrd Date/Time/By: 07/03/2017 (5431) : By: [email or web address] Orig Prin t D/T: S: 07/03/2017 (7885) PAGE 1 Signed Report - CT ABD PELVIS [id number] 23:11:00 Name: ALEX FRASER [facility] : 1945 Age/S: 72 / F [address] [place] [address] Unit #: [id number] Loc: [place] [address] Phys: Juma Morales DO Acct: [id number] Dis Date: Status: UNK PHONE #: [phone] Exam Date: 07/03/20176 FAX #: [phone] Reason: abd pain EXAMS: CPT CODE: [id number] CT ABD PELVIS W/CONT 04608 CT ABDOMEN AND PELVIS WITH CONTRAST AND MULTIPLANAR REFORMATS 07/03/2017. INDICATION: Abdominal pain, vomiting, left arm tightness and shortness of breath. COMPARISON: None. TECHNIQUE: Helical imaging was performed diaphragm through the symphysis with axial and coronal reformations obtained. IV CONTRAST: 100 mL Isovue- 300. GI CONTRAST: 10 mL Gastrografin diluted in water. DLP= 327.58 mGy-cm FINDINGS: LOWER CHEST: Bilateral dependent subsegmental atelectasis without edema or lobar consolidation. Cardiomegaly with multichamber enlargement. No pericardial thickening or effusion. No adenopathy. Small sliding hiatus hernia with gastric esophageal reflux. SOLID ORGANS: Diffuse liver hypodensity without enhancing lesions. Cholecystectomy with compensatory biliary ectasia and no filling defects. The spleen, pancreas, adrenal glands and kidneys are unremarkable. BOWEL: Limited gastric contrast emptying limiting evaluation. No pneumatosis or portal venous air. Non opacified, noninflamed appendix. No signs of diverticulitis. PERITONEUM: No free intraperitoneal fluid or air. RETROPERITONEU M: No adenopathy. Moderate aortoiliac atherosclerosis without aneurysm. PELVIS: No pelvic adenopathy, mass or free fluid. Unremarkable bladder. No inguinal hernia or adenopathy. MUSCULOSKELETAL: Se kike lumbosacral facet arthropathy with 2 mm degenerative anterolisthesis of L4 over L5. No destructive bone lesions. Moderate to severe lower tho racic spondylosis. IMPRESSION: 1. Small sliding hiatus hernia with moderate gastroesophageal reflux. 2. Otherwise no CT explanation for the patient's symptoms. PAGE 1 Signed Report (CONTINUED) Name: ALEX FRASER [facility] : 1945 Age/S: 72 / F [address] [facility] Unit #: [id number] Loc: [place] [address] Phys: AndrewJuma Acct: [id number] Dis Date: Status: UNK PHONE #: [phone] Exam Date: 07/03/2017 22 46 FAX #: [phone] Reason: abd pain EXAMS: CPT CODE: [id number] CT ABD PELVIS W/CONT 42942 <Continued> 3. Fatty liver. 4. Atherosclerosis. 5. Cholecystectomy. SL: TR-H at 2311 Reported and signed by: Odilon Cabrera M.D. CC: Juma Morales DO Technologist:RT Katey(R) CTDI: DLP: Trnscb Date/Time: 07/03/2017 (2311) [email or web address] Orig Print D/T: S: 07/03/2017 (5024) PAGE 2 Signed Report
--- NOTE | 2020-06-30 17:19 | NUR ---
Direct admit received via wheelchair. Accompanied by daughter and son. AAOX3 to time,person, place. Respirations even and unlabored. Denies pain. Oriented patient to room. Instructed to use call light for assistance. Voiced understanding.
[2020-06-30 17:38] VITALS: BP 159/57
[2020-06-30 18:00] VITALS: BP 159/57
[2020-06-30] MEDS ORDERED: DEXTROSE 50% SYRINGE 50 ML IV PRN (18:30)
--- NOTE | 2020-06-30 19:20 | NUR ---
BEDSIDE SHIFT REPORT RECEIVED. PATIENT IS RESTING IN BED, RESP EVEN AND UNLABORED. NO ACUTE DISTRESS NOTED. EDUCATED PT ABOUT FALL PRECAUTIONS. PT VERBALIZED UNDERSTANDING. CALL LIGHT WITH IN EASY REACH. INSTRUCTED PT TO USE CALL LIGHT FOR ALL THE NEEDS. BED IS LOW AND LOCKED. SIDE RAILS X2. BED ALARM IS ON. PT DENIES NEEDS AT THIS TIME.
--- NOTE | 2020-06-30 19:29 | NUR ---
Report given to oncoming nurse of patient's status. Resting in bed. AAOX3 to time, person, place, situation. Respirations even and unlabored. Side rails upx2, call light within reach.
[2020-06-30] MEDS ORDERED: MIRTAZAPINE15 MG PO (19:32)
[2020-06-30] MEDS ORDERED: LEVOTHYROXINE75 MCG PO (19:32)
[2020-06-30] MEDS ORDERED: METFORMIN HCL500 MG PO (19:32)
[2020-06-30] MEDS ORDERED: SERTRALINE HCL50 MG PO (19:32)
[2020-06-30 20:00] VITALS: BP 163/63
[2020-06-30 20:42] LABS: BASOPHILS # (AUTO) 0.1 (0.0-0.1); BASOPHILS % 0.7 % (0.0-1.0); EOSINOPHILS # (AUTO) 0.2 (0.0-0.4); EOSINOPHILS % 2.1 % (0.0-6.0); HEMATOCRIT 35.7 % (34.2-44.1); HEMOGLOBIN 10.4 g/dL (12.0-16.0); LYMPHOCYTES # (AUTO) 2.1 (1.0-3.2); LYMPHOCYTES % 23.4 % (18.0-39.1); MEAN CORPUSCULAR HEMOGLOBIN 25.9 pg (28-32); MEAN CORPUSCULAR HGB CONC 29.1 g/dL (31-35); MONOCYTES # (AUTO) 0.4 (0.2-0.8); MONOCYTES % 4.6 % (4.4-11.3); NEUTROPHILS # (AUTO) 6.1 (2.1-6.9); PLATELET COUNT 248 x10e3/uL (140-360); RED BLOOD COUNT 4.01 x10e6/uL (3.6-5.1); RED CELL DISTRIBUTION WIDTH 14.7 % (11.7-14.4)
[2020-06-30] MEDS: INSULIN LISPRO 100 UNIT/1 ML 3ML VIAL SQ SCH (20:45)
[2020-06-30 21:00] LABS: ANION GAP 17.5 mmol/L (8-16); CALCIUM 9.7 mg/dL (8.4-10.2); CREATININE, SERUM 3.9 mg/dL (0.57-1.11); POTASSIUM 5.5 mmol/L (3.5-5.1)
[2020-06-30 21:12] VITALS: BP 159/57
[2020-06-30] MEDS: SERTRALINE HCL 50 MG TAB PO SCH (21:25)
[2020-06-30] MEDS: SODIUM CHLORIDE 0.9% 1000ML 1,000 ML IV SCH (21:25)
[2020-07-01] VITALS (7 sets, daily range): BP systolic 108–149; BP diastolic 47–85
--- NOTE | 2020-07-01 02:11 | NUR ---
GAVE REPORT TO RN FOR CONTINUING CARE
--- NOTE | 2020-07-01 02:15 | NUR ---
ASSUMED CARE OF PATIENT. PATIENT RESTING IN BED AT THIS TIME. NO PAIN NOTED. NO NEEDS EXPRESSED. NS @ 100ML/HR RUNNING TO R HAND 20G. BED ALARM ACTIVE. BED LOCKED IN LOWEST POSITION, SIDE RAILS UPX2, CALL LIGHT IN REACH.
[2020-07-01] MEDS: LEVOTHYROXINE SODIUM 75 MCG TAB PO SCH (06:48)
[2020-07-01] MEDS: INSULIN LISPRO 100 UNIT/1 ML 3ML VIAL SQ SCH ×4 (07:30→21:20)
--- NOTE | 2020-07-01 08:00 | NUR ---
Maggie MEREDITH assisted in 16F brooks catheter placement. cloudy yellow urine noted. Brooks securement device in place.
[2020-07-01] MEDS ORDERED: LACTULOSE SYRUP 20 GM/30 ML UDC PO ONE ×2 (08:20→08:55)
[2020-07-01] MEDS ORDERED: SOD POLYSTYRENE SULFONATE SUSP 15 GM/60 ML BTL PO ONE (08:20)
[2020-07-01 08:37] LABS: CLARITY,URINE SL CLOUDY (CLEAR); COLOR,URINE YELLOW (YELLOW); LEUKOCYTE ESTERASE ,URINE TRACE (NEGATIVE); NITRITE,URINE NEGATIVE (NEGATIVE); PROTEIN,URINE DIPSTICK 1+ (NEGATIVE)
[2020-07-01 08:38] LABS: BILIRUBIN,URINE NEGATIVE (NEGATIVE); KETONES,URINE NEGATIVE (NEGATIVE); URINE UROBILINOGEN 0.2 mg/dL (0.2 - 1)
[2020-07-01] MEDS: PANTOPRAZOLE SOD 40 MG TABEC PO SCH (08:40)
[2020-07-01 08:53] LABS: BACTERIA,URINE MANY /HPF; EPITHELIAL CELLS,URINE RARE /LPF; RBC,URINE 21-50 /HPF (0-5); WBC,URINE (MAN) 21-50 /HPF (0-5)
--- NOTE | 2020-07-01 08:58 | Diagnostic Imaging Report ---
Renal ultrasound. History: Acute renal failure. Comparison: None. Discussion: Transverse and longitudinal images of the kidneys were obtained demonstrating normal renal sizes and echogenicities. There is no evidence of hydronephrosis, mass, or renal calculus. The right kidney measures 9.0 cm and the left kidney measures 9.2 cm in length. The urinary bladder is mildly distended. There is no evidence of free fluid. IMPRESSION: Negative for hydronephrosis or obstructing calculus. Signed by: Ric Milian MD on 07/01/2020 8:54 AM
--- NOTE | 2020-07-01 10:21 | History and Physical ---
PRIMARY CARE PHYSICIAN: Roe Saini MD. PLANT AND MAINTENANCE TECHNICIAN: Yi Zavala MD. CHIEF COMPLAINT: Acute kidney injury secondary to contrast diet. HISTORY OF PRESENT ILLNESS: The patient is a 75-year-old female with recent LHC and angiogram with subsequent intervention angioplasty to the left leg now with elevation of BUN and CR. The patient at that facility, according to Dr. Roe Saini, patient's PCP, the patient underwent cardiac catheterization and angiogram. She subsequently was discharged and then follow up with Dr. Saini. Lab work showed that the patient has acute kidney injury. The patient is now admitted to the hospital. The urinalysis is consistent with some infection. Her BUN and creatinine were 49 and 3.9 respectively. The patient also has potassium of 5.5. Her CBC slightly anemic with hemoglobin and hematocrit of 10.4 and 35.7. Urinalysis is pending for eosinophils. The patient had wbc's in the urine of 21-50, many bacteria. The patient has no fever. Serology test here, coronavirus PCR is still pending. The imaging renal ultrasound showed negative for hydronephrosis or obstructive calculus. The patient is otherwise stable at this time. PAST MEDICAL HISTORY: Includin. Diabetes type 2. 2. Depression. 3. Hypothyroidism. 4. Recent COVID-19 infection. PAST SURGICAL HISTORY: Noncontributory. SOCIAL HISTORY: The patient does not smoke or use alcohol. No regular drug. ALLERGIES: PENICILLIN. HOME MEDICATIONS: 1. Levothyroxine. 2. Metformin. 3. Remeron. 4. Zoloft. PHYSICAL EXAMINATION: VITAL SIGNS: Temperature is 98, blood pressure 124/51, pulse rate 59, respirations 20. GENERAL: The patient is not in acute distress. She is awake. HEENT: Normocephalic and atraumatic. Anicteric. NECK: Supple grossly. PULMONARY: Diminished breath sounds without any wheezing or rales. CARDIOVASCULAR: S1, S2. Regular rate and rhythm. ABDOMEN: Soft, nontender, non-distention. EXTREMITIES: No cyanosis or edema grossly. NEUROLOGIC: No gross focal deficit. LABORATORY DATA: Sodium 138, potassium 5.5, chloride 111, bicarb 15, BUN 49, creatinine 3.9, glucose 122. WBC is 8.7, hemoglobin 10.4, hematocrit 35.7, and platelets is 248. Urinalysis is yellow, cloudy urine with 1+ protein, negative for glucose, trace leukocyte esterase, rbc's 11-50, wbc's 11-50, and many bacteria. IMPRESSION: 1. Acute renal failure, most likely secondary to contrast dye, since the patient did have a cardiac catheterization. 2. Urinary tract infection, probably asymptomatic. 3. Recent coronavirus disease-2019 infection that has resolved. The patient coronavirus disease here PCR is still pending. PLAN: IV fluid rehydration. Treat the potassium. IV antibiotics for now. We will follow up with Dr. Yi Zavala recommendation. Repeat lab work in the morning. MD DEEPALI Ortiz/DINHL /[id number] MTDD
[2020-07-01] MEDS: SODIUM CHLORIDE 0.9% 1000ML 1,000 ML IV SCH (11:15)
[2020-07-01] MEDS: CEFTRIAXONE SOD 1 GM/NS 50 ML 50 ML IV SCH (11:15)
[2020-07-01] MEDS: SODIUM BICARBONATE 8.4% 150 ML in DEXTROSE 5% 1,000 ML IV SCH (15:00)
--- NOTE | 2020-07-01 19:15 | NUR ---
Report given to oncoming nurse of patient's status. No s/s of acute distress noted. Side rails upx2, call light within reach.
--- NOTE | 2020-07-01 19:20 | NUR ---
BEDSIDE SHIFT REPORT RECEIVED. PATIENT IS RESTING IN BED, RESP EVEN AND UNLABORED. NO ACUTE DISTRESS NOTED. SUAREZ IN PLACE. EDUCATED PT ABOUT FALL PRECAUTIONS. PT VERBALIZED UNDERSTANDING. CALL LIGHT WITH IN EASY REACH. INSTRUCTED PT TO USE CALL LIGHT FOR ALL THE NEEDS. BED IS LOW AND LOCKED. SIDE RAILS X2. BED ALARM IS ON. PT DENIES NEEDS AT THIS TIME. CONTINUE TO MONITOR CLOSELY
--- NOTE | 2020-07-01 19:40 | Consultation ---
DATE OF CONSULTATION: 07/01/2020 HISTORY OF PRESENT ILLNESS: This is a delightful 75-year-old female, who has been admitted with worsening kidney function. She has a baseline serum creatinine anywhere between 1.5 to 1.6. I spoke with Dr. Saini earlier. Apparently in early part of May she went to an urgent care, diagnosed to have COVID pneumonia, was sent to [place]. She does not remember the name of the hospital, but she said she had lot of studies done including a peripheral angiogram involving lower extremity, not sure if there was a stent placed or any angioplasty done. She was having some chest pain radiating up her neck. She was told it was angina, but no cardiac cath was done, but she did have a peripheral angiogram, recently saw Dr. Pedroza and apparently had a Doppler done of her lower extremity. She denies any complaints at this point in time, bright, alert, comfortable, no apparent distress, has history of hypothyroidism, recent COVID-19 infection, history of type 2 diabetes, maintained on metformin and CKD 3 most likely. SOCIAL HISTORY: Does not smoke or drink. FAMILY HISTORY: Significant for hypertension. CURRENT LABORATORY DATA: White count 8.7, hemoglobin 10.4. Chemistry, sodium 138, potassium 5.5, chloride 111, bicarb 15, and anion gap 17, BUN 49, creatinine 3.9. Urinalysis pH 5.5, specific gravity 1.015, 21-50 RBC and 21-50 WBCs. ALLERGIES: PENICILLIN. HOME MEDICATIONS: Include metformin, the patient is currently on normal saline, levothyroxine 75 mcg daily, Protonix 40 mg daily, and apparently on ceftriaxone 1 g IV q.24. Cultures have not been done. In the meantime, I had a kidney ultrasound done and it showed 9.2 cm kidneys. Bilaterally no hydronephrosis. PHYSICAL EXAMINATION: GENERAL: Awake, alert, lying supine, in no apparent distress. VITAL SIGNS: Blood pressure 124/51, pulse rate 59, afebrile. HEAD AND NECK: Cornea clear. Oral mucosa moist. LUNGS: Relatively clear. HEART: S1 and S2 audible. ABDOMEN: Soft, nontender. No apparent visceromegaly. EXTREMITIES: Lower extremity, no edema, no evidence of cyanosis and seems to have good circulation lower extremity. IMPRESSION: 1. Acute kidney injury most likely contrast nephropathy. Underlying CKD 3. 2. Hyperkalemia with type 4 renal tubular acidosis. Urinalysis shows lot of white cells, white cells and RBCs in the urine. PLAN: On obtaining urine culture continue with ceftriaxone, I will order. Given the microscopic hematuria I believe this is renal tract infection, but I will send a complement level C3-C4 and DIMLPE. Change IV fluid to IV bicarbonate, has hyperkalemia, I will dose with Kayexalate and lactulose, placed on a renal diet. Please see orders. MD ZENAIDA Del Toro/MODL /[id number]
[2020-07-01] MEDS: SERTRALINE HCL 50 MG TAB PO SCH (21:53)
[2020-07-02] VITALS (8 sets, daily range): BP systolic 127–142; BP diastolic 43–68
[2020-07-02] MEDS: SODIUM BICARBONATE 8.4% 150 ML in DEXTROSE 5% 1,000 ML IV SCH ×2 (04:00→12:30)
--- NOTE | 2020-07-02 04:17 | Consultation ---
DATE OF CONSULTATION: 07/01/2020 HISTORY OF PRESENT ILLNESS: A 75-year-old female, who recently was admitted at Hospital with COVID pneumonia. He apparently had a CT angio done, exact reason for that study and date not clear. DICTATION ENDS HERE. MD ZENAIDA Del Toro/LUCA /[id number]
[2020-07-02] MEDS: LEVOTHYROXINE SODIUM 75 MCG TAB PO SCH (05:55)
[2020-07-02 06:26] LABS: ALBUMIN 2.4 g/dL (3.5-5.0); ALBUMIN/GLOBULIN RATIO 0.7 (0.8-2.0); ANION GAP 14.3 mmol/L (8-16); CALCIUM 7.9 mg/dL (8.4-10.2); CREATININE, SERUM 3.11 mg/dL (0.57-1.11); POTASSIUM 4.3 mmol/L (3.5-5.1)
[2020-07-02 06:42] LABS: MAGNESIUM 1.5 MG/DL (1.3-2.1); PHOSPHORUS 4.3 MG/DL (2.3-4.7)
[2020-07-02 07:04] LABS: THYROID STIMULATING HORMONE 1.018 uIU/mL (0.350-4.940)
[2020-07-02] MEDS: INSULIN LISPRO 100 UNIT/1 ML 3ML VIAL SQ SCH ×4 (07:30→21:00)
[2020-07-02] MEDS: PANTOPRAZOLE SOD 40 MG TABEC PO SCH (08:54)
[2020-07-02] MEDS: CEFTRIAXONE SOD 1 GM/NS 50 ML 50 ML IV SCH (08:57)
--- NOTE | 2020-07-02 10:38 | NUR ---
supervisor blooming mill visited the pt and the pt expressed john and hope in God and supervisor blooming mill provided pastoral support and encouragement and prayer . Pt was grateful for supervisor blooming mill visit and support. chaplain Roseanna
--- NOTE | 2020-07-02 17:24 | NUR ---
Nutrition Screen Note RD Recommendation for Physician: -Recommend ADA diet -If PO intake is <50% of meals, offer a Glucerna nutrition supplement Plan of Care: RD following, monitoring for tolerance and adequacy Nutrition reason for involvement: Nutrition Risk Trigger Primary Diagnose(s): acute renal failure PMH: Diabetes type 2, Depression, Hypothyroidism, Recent COVID-19 infection. Ht: 63 in Wt: 127.44 lb BMI: 22.6 kg/m2 IBW:[address] Assessment: (07/02/20) Chart reviewed. Labs and meds reviewed. Pt is a 75 year old female admitted with acute renal failure. Pt is primarily Honduran speaking per chart. COVID-19 test is pending. It is recorded that pt consumed 5-25% of meals yesterday. Spoke to RN who reported pt is now eating about 75% of her meals and had no nutrition-related concerns. There are no previous weights in chart, but pt reports a 2-13 lb weight loss as noted in chart. Will continue to monitor Current Diet: renal diet Malnutrition Evaluation (07/02/20) The patient does not meet criteria for a specified degree of malnutrition at this time. Will re-evaluate at follow-up as appropriate. Diet Education Needs Assessment: RD is available for diet education as needed Nutrition Care Level: low Signed: Vira Mcgraw, RD, LD
[2020-07-02] MEDS: ACETAMINOPHEN 325 MG TAB PO PRN (19:39)
[2020-07-02] MEDS: SERTRALINE HCL 50 MG TAB PO SCH (21:26)
[2020-07-03] VITALS (8 sets, daily range): BP systolic 129–150; BP diastolic 49–62
[2020-07-03] MEDS: SODIUM BICARBONATE 8.4% 150 ML in DEXTROSE 5% 1,000 ML IV SCH ×3 (04:39)
[2020-07-03] MEDS: LEVOTHYROXINE SODIUM 75 MCG TAB PO SCH (05:32)
[2020-07-03 06:33] LABS: ANION GAP 13.8 mmol/L (8-16); CALCIUM 7.8 mg/dL (8.4-10.2); CREATININE, SERUM 2.97 mg/dL (0.57-1.11); POTASSIUM 3.8 mmol/L (3.5-5.1)
[2020-07-03] MEDS: INSULIN LISPRO 100 UNIT/1 ML 3ML VIAL SQ SCH ×4 (07:30→20:56)
[2020-07-03] MEDS: CEFTRIAXONE SOD 1 GM/NS 50 ML 50 ML IV SCH (09:34)
[2020-07-03] MEDS: PANTOPRAZOLE SOD 40 MG TABEC PO SCH (09:34)
[2020-07-03] MEDS: ACETAMINOPHEN 325 MG TAB PO PRN (13:23)
--- NOTE | 2020-07-03 19:15 | NUR ---
patient received awake, alert, lying quietly in bed. no c/o pain noted. call everett placed within reach. patient instructed to call for assistance when needed.
--- NOTE | 2020-07-03 19:27 | NUR ---
report given to Osman Gonzalez RN at this time.
--- NOTE | 2020-07-03 21:10 | NUR ---
Patient visited during nursing rounds. Patient alert and oriented x3. On bedrest. Pt has off and on lower back pain and receives Tylenol 650mg PO prn. Pt on scheduled IV antibiotic treatment. Call everett within reach. Will monitor pt closely.
[2020-07-03] MEDS: SERTRALINE HCL 50 MG TAB PO SCH (21:55)
[2020-07-04] VITALS (9 sets, daily range): BP systolic 134–159; BP diastolic 41–65
[2020-07-04] MEDS: LEVOTHYROXINE SODIUM 75 MCG TAB PO SCH (06:30)
[2020-07-04] MEDS: PANTOPRAZOLE SOD 40 MG TABEC PO SCH (06:30)
[2020-07-04 06:57] LABS: CALCIUM 8.2 mg/dL (8.4-10.2); CREATININE, SERUM 2.99 mg/dL (0.57-1.11)
[2020-07-04] MEDS: INSULIN LISPRO 100 UNIT/1 ML 3ML VIAL SQ SCH ×4 (07:30→20:48)
[2020-07-04] MEDS: ACETAMINOPHEN 325 MG TAB PO PRN (10:16)
[2020-07-04] MEDS: CEFTRIAXONE SOD 1 GM/NS 50 ML 50 ML IV SCH (10:16)
--- NOTE | 2020-07-04 14:01 | NUR ---
Patient is transported for radiology at this time.
--- NOTE | 2020-07-04 14:36 | NUR ---
patient is back in the room from radiology.
--- NOTE | 2020-07-04 15:04 | Diagnostic Imaging Report ---
EXAM: CT Abdomen and Pelvis WITHOUT contrast INDICATION: Severe abdominal and flank pain. COMPARISON: None. TECHNIQUE: Abdomen and pelvis were scanned utilizing a multidetector helical scanner from the lung base to the pubic symphysis without administration of IV contrast. Absence of intravenous contrast decreases sensitivity for detection of focal lesions and vascular pathology. Coronal and sagittal reformations were obtained. Routine protocol was performed. IV CONTRAST: None. ORAL CONTRAST: Water RADIATION DOSE: Total DLP: 239.93 mGy*cm Estimated effective dose: (DLP x 0.015 x size factor) mSv COMPLICATIONS: None FINDINGS: LINES and TUBES: Florentino catheter within urinary bladder. LOWER THORAX: Mild bibasilar senescent fibrosis and paraseptal emphysema. Bilateral trace pleural effusions. HEPATOBILIARY: Not visualized possibly surgically absent. GALLBLADDER: No radio-opaque stones or sludge. No wall thickening. SPLEEN: No splenomegaly. PANCREAS: No focal masses or ductal dilatation. ADRENALS: No adrenal nodules KIDNEYS/URETERS: No hydronephrosis. No cystic or solid mass lesions. No stones. Mild bilateral perinephric stranding without perinephric fluid collections. GI TRACT: No abnormal distention, wall thickening, or evidence of bowel obstruction. Appendix is normal. PELVIC ORGANS/BLADDER: The uterus is retroverted. The urinary bladder is decompressed by Florentino catheter. LYMPH NODES: No lymphadenopathy. VESSELS: There is moderate atherosclerotic disease in the aorta and major arterial branches. Mild soft tissue attenuation about the anterior border on image 40 142 is nonspecific, however, could reflect mild focal arthritis in the proper clinical setting. PERITONEUM / RETROPERITONEUM: No free air or fluid. BONES: Mild grade 1 anterolisthesis of L4 in relation to L5. Bilateral facet arthropathy at this level. SOFT TISSUES: Unremarkable. IMPRESSION: 1. No acute abdominal pelvic abnormality. 2. Moderate atherosclerotic calcifications of the abdominal aorta. Mild soft tissue attenuation about the distal abdominal aorta is a nonspecific finding and not well evaluated on this noncontrast scan, however, mild focal aortitis. Signed by: Dr. Floridalma Bland M.D. on 07/04/2020 3:01 PM
[2020-07-04] MEDS: LIDOCAINE 4% PATCH TP SCH (15:07)
--- NOTE | 2020-07-04 15:07 | Diagnostic Imaging Report ---
Thoracic Spine - 4 view(s) HISTORY: Pain COMPARISON: None FINDINGS: The upper thoracic spine is not well-visualized. Superimposed structures and attenuation partially limit bone detail. The alignment is normal. No displaced fracture or compression deformity is identified. Degenerative disc disease and spondylosis of the lower thoracic spine. IMPRESSION: Degenerative changes of the lower thoracic spine. Signed by: Dr. Floridalma Bland M.D. on 07/04/2020 3:04 PM
--- NOTE | 2020-07-04 15:08 | Diagnostic Imaging Report ---
Lumbar Spine Radiographs: 3 views HISTORY: Pain COMPARISON: None available. DISCUSSION: There are five non-rib bearing lumbar vertebral bodies. The alignment of the spine is within normal limits. No displaced fracture or compression deformity is identified. Mild multilevel degenerative disc disease and spondylosis at multiple levels. Grade 1 anterolisthesis of L4 in relation to L5 without listhesis. Bilateral facet arthropathy L4-L5 and L5-S1. DJD of SI joint bilaterally. IMPRESSION: Mild multilevel degenerative disc disease and spondylosis at multiple levels. Grade 1 anterolisthesis of L4 in relation to L5 without listhesis. Bilateral facet arthropathy L4-L5 and L5-S1. Signed by: Dr. Floridalma Bland M.D. on 07/04/2020 3:05 PM
--- NOTE | 2020-07-04 19:15 | NUR ---
Patient visited during nursing rounds. Patient alert and oriented x3. On bedrest. Pt has Lidocaine patch on back and states she has no back pain at this time. Florentino catheter in place for strict intake and output. Call everett within reach. Will monitor pt closely.
[2020-07-04] MEDS: SERTRALINE HCL 50 MG TAB PO SCH (20:50)
[2020-07-05] VITALS (7 sets, daily range): BP systolic 110–155; BP diastolic 45–92
[2020-07-05] MEDS: PANTOPRAZOLE SOD 40 MG TABEC PO SCH (06:33)
[2020-07-05] MEDS: LEVOTHYROXINE SODIUM 75 MCG TAB PO SCH (06:33)
[2020-07-05] MEDS: INSULIN LISPRO 100 UNIT/1 ML 3ML VIAL SQ SCH ×4 (07:30→21:00)
[2020-07-05 07:40] LABS: ANION GAP 15.2 mmol/L (8-16); CALCIUM 8.7 mg/dL (8.4-10.2); CREATININE, SERUM 3.37 mg/dL (0.57-1.11); POTASSIUM 4.2 mmol/L (3.5-5.1)
[2020-07-05] MEDS: LIDOCAINE 4% PATCH TP SCH (09:16)
[2020-07-05] MEDS: SODIUM CHLORIDE 0.9% 1000ML 1,000 ML IV SCH ×2 (09:16→22:51)
[2020-07-05] MEDS: CEFTRIAXONE SOD 1 GM/NS 50 ML 50 ML IV SCH (09:16)
--- NOTE | 2020-07-05 15:21 | Diagnostic Imaging Report ---
Left foot, 3 views INDICATION: ^RO OSTEO ^[id number] ^1447 Comparison: None available. Discussion: Osseous structures are demineralized limiting evaluation. Multiple views are negative for acute displaced fracture or dislocation. Mild dorsal tarsal spurring is noted. Hammertoe deformities are noted. Negative for cortical erosion or periosteal reaction. Negative for subcutaneous emphysema. Negative for radiopaque foreign body within the overlying soft tissues. IMPRESSION: Negative for radiographic evidence of osteomyelitis. Consider follow-up MRI or triple phase bone scan for more sensitive evaluation if clinically indicated. Signed by: Ric Milian MD on 07/05/2020 3:18 PM
--- NOTE | 2020-07-05 15:31 | Diagnostic Imaging Report ---
Left hand, 3 views INDICATION: ^c/o severe pain ^[id number] ^1654 Comparison: None available. Discussion: Multiple views of the left hand are negative for an acute displaced fracture or dislocation. Mild diffuse demineralization is noted. Degenerative changes of the distal interphalangeal joints are noted, most prominent within the second and third digits. Mild narrowing of the radiocarpal joint space is noted. Negative for focal soft tissue swelling. Negative for radiopaque foreign body within the overlying soft tissues. IMPRESSION: Negative for acute displaced fracture or dislocation of the left hand. Degenerative changes of the second and third distal interphalangeal joints and radiocarpal joint space are noted. Signed by: Ric Milian MD on 07/05/2020 3:28 PM
[2020-07-05 19:01] LABS: CLARITY,URINE SL CLOUDY (CLEAR); COLOR,URINE YELLOW (YELLOW)
[2020-07-05 19:02] LABS: BILIRUBIN,URINE NEGATIVE (NEGATIVE); KETONES,URINE NEGATIVE (NEGATIVE); LEUKOCYTE ESTERASE ,URINE NEGATIVE (NEGATIVE); NITRITE,URINE NEGATIVE (NEGATIVE); PROTEIN,URINE DIPSTICK 2+ (NEGATIVE); URINE UROBILINOGEN 0.2 mg/dL (0.2 - 1)
[2020-07-05 19:11] LABS: BACTERIA,URINE FEW /HPF; EPITHELIAL CELLS,URINE FEW /LPF; WBC,URINE (MAN) 0-5 /HPF (0-5)
[2020-07-05] MEDS: SERTRALINE HCL 50 MG TAB PO SCH (20:45)
[2020-07-06] VITALS (8 sets, daily range): BP systolic 134–168; BP diastolic 55–83
[2020-07-06] MEDS: SODIUM CHLORIDE 0.9% 1000ML 1,000 ML IV SCH (05:53)
[2020-07-06] MEDS: LEVOTHYROXINE SODIUM 75 MCG TAB PO SCH (05:53)
[2020-07-06 07:00] LABS: ANION GAP 13.9 mmol/L (8-16); CALCIUM 8.5 mg/dL (8.4-10.2); CREATININE, SERUM 2.94 mg/dL (0.57-1.11); POTASSIUM 3.9 mmol/L (3.5-5.1)
[2020-07-06] MEDS: INSULIN LISPRO 100 UNIT/1 ML 3ML VIAL SQ SCH ×4 (07:30→21:00)
[2020-07-06] MEDS: PANTOPRAZOLE SOD 40 MG TABEC PO SCH (08:16)
[2020-07-06] MEDS: LIDOCAINE 4% PATCH TP SCH (08:51)
[2020-07-06] MEDS: CEFTRIAXONE SOD 1 GM/NS 50 ML 50 ML IV SCH (09:13)
[2020-07-06] MEDS ORDERED: BISACODYL 10 MG SUPP PR ONE (10:00)
[2020-07-06] MEDS ORDERED: BISACODYL 5 MG TAB EC PO ONE (10:00)
[2020-07-06] MEDS ORDERED: BISACODYL 10 MG SUPP PR PRN (10:00)
[2020-07-06] MEDS ORDERED: BISACODYL 5 MG TAB EC PO PRN (10:00)
[2020-07-06] MEDS: SENNA-S TABLET PO SCH ×2 (10:00→17:00)
--- NOTE | 2020-07-06 12:48 | NUR ---
MONTY mullins the brooks and patient urinated this time.
--- NOTE | 2020-07-06 13:05 | NUR ---
Per Dr Sally MILLAN IV fluids and patient can go home from his point
--- NOTE | 2020-07-06 13:38 | NUR ---
patient refused all laxatives, stated she already had BM this morning
--- NOTE | 2020-07-06 19:15 | NUR ---
Patient received sitting in recliner chair. AAO x 3. Patient had no complaints of pain. Respirations even and non-labored. Safety measures in place. Patient instructed to call for assistance when needed. Call light within reach.
--- NOTE | 2020-07-06 21:06 | Consultation ---
DATE OF CONSULTATION: 07/06/2020 Cardiology Consultation REQUESTING PHYSICIAN: Russell Magdaleno MD REASON FOR CONSULTATION: Peripheral arterial disease. HISTORY OF PRESENT ILLNESS: This is a 75-year-old woman with history of diabetes mellitus, hypothyroidism, and hyperlipidemia, who [facility]. The patient had apparently been admitted to [facility] in [place] with chest pain. She had a stress test done that was reported to be normal and underwent a peripheral angiogram with atherectomy of the left lower extremity. After discharge, she followed up in the office with Dr. Pedroza. Records were obtained from the outside facility, which demonstrated remaining stenosis of the bilateral common iliac arteries. She was scheduled for peripheral angiogram for elective intervention. However, in preop testing, she was found to have acute kidney failure and sent to the ER for further care. Cardiology is consulted for management of her peripheral arterial disease. She currently denies any symptoms. Denies chest pain, shortness of breath, palpitations, edema, orthopnea, or PND. She is currently without complaints. REVIEW OF SYSTEMS: Negative except as per HPI. PAST MEDICAL HISTORY: 1. Peripheral arterial disease. 2. Hyperlipidemia. 3. Diabetes mellitus. 4. Hypothyroidism. ALLERGIES: PLEASE SEE EMR. MEDICATIONS: Please see medication list. SOCIAL HISTORY: No tobacco, alcohol, or drugs. FAMILY HISTORY: Noncontributory to current illness. PHYSICAL EXAMINATION: VITAL SIGNS: Temperature 98.1 degrees, pulse 86, respiratory rate 20, blood pressure 133/63, oxygen saturation 100% on room air. GENERAL: An elderly woman, in no acute distress. Awake and alert. LUNGS: Clear to auscultation bilaterally. No wheezes or crackles. CARDIOVASCULAR: Normal rate, regular rhythm. No murmur. Normal S1, S2. ABDOMEN: Soft, nontender, nondistended. EXTREMITIES: No edema. NEUROLOGIC: Nonfocal exam. LABORATORY DATA: Sodium 138, potassium 3.9, chloride 108, CO2 of 20, BUN 27, creatinine 2.94. IMPRESSION: 1. Acute kidney injury on chronic kidney disease. 2. Peripheral arterial disease with remaining stenosis of bilateral common iliac arteries. 3. Diabetes mellitus. 4. Hyperlipidemia. 5. Hypothyroidism. RECOMMENDATIONS: Given the patient's acute kidney injury, no intervention is planned at this time. Monitor for wounds or gangrenous changes. Medical therapy with aspirin 81 mg p.o. daily. We will check a fasting lipid panel. Blood pressure is reasonable for her age. Monitor for now. Management of acute kidney injury per Nephrology. Thank you for this consult. We will continue to follow. Rosario Kee MD ABS/MODL /[id number] MTDD
[2020-07-06] MEDS: SERTRALINE HCL 50 MG TAB PO SCH (21:42)
[2020-07-07] VITALS: BP 134/53
[2020-07-07 04:00] VITALS: BP 141/59
[2020-07-07] MEDS: LEVOTHYROXINE SODIUM 75 MCG TAB PO SCH (06:01)
[2020-07-07 07:00] LABS: ANION GAP 15.8 mmol/L (8-16); CREATININE, SERUM 2.88 mg/dL (0.57-1.11); POTASSIUM 3.8 mmol/L (3.5-5.1)
--- NOTE | 2020-07-07 07:00 | NUR ---
BEDSIDE SHIFT REPORT RECEIVED FROM THE MASTER CONTROL SUPERVISOR RN. EDUCATED PT ABOUT FALL PRECAUTIONS. PT VERBALIZED UNDERSTANDING. BED IS LOW AND LOCKED. SIDE RAILS X2. CALL LIGHT WITH IN EASY REACH. ALL SAFETY MEASURES IN PLACE. PT DENIES NEEDS AT THIS TIME.
--- NOTE | 2020-07-07 07:00 | NUR ---
Patient resting comfortably. Walking rounds done. Bed-side shift report given to oncoming nurse.
[2020-07-07 07:22] LABS: CHOL/HDL RATIO 3.9 (3.0-3.6)
[2020-07-07] MEDS: INSULIN LISPRO 100 UNIT/1 ML 3ML VIAL SQ SCH ×2 (07:30→11:30)
[2020-07-07 08:00] VITALS: BP 159/61
[2020-07-07 08:03] VITALS: BP 159/61
[2020-07-07] MEDS: PANTOPRAZOLE SOD 40 MG TABEC PO SCH (08:30)
[2020-07-07] MEDS: LIDOCAINE 4% PATCH TP SCH (08:43)
[2020-07-07] MEDS: SENNA-S TABLET PO SCH (08:45)
[2020-07-07] MEDS: CEFTRIAXONE SOD 1 GM/NS 50 ML 50 ML IV SCH (09:00)
[2020-07-07] MEDS ORDERED: ASPIRIN 81 MG ENTERIC COATED PO SCH (09:00)
--- NOTE | 2020-07-07 10:30 | NUR ---
PAGED DR. NOLAND REGARDING PT DISCHARGE. NEEDS TO SEE THE PT AND INFORM PER THE
[2020-07-07 11:58] VITALS: BP 153/54
--- NOTE | 2020-07-07 12:15 | NUR ---
DR. NOLAND AT BEDSIDE. OKAY TO D/C PT PE DR NOLAND.
[2020-07-07] MEDS ORDERED: KEFLEX500 MG (12:30)
[2020-07-07] MEDS ORDERED: SENNA LAX8.6 MG PO (12:30)
[2020-07-07] MEDS ORDERED: ECOTRIN81 MG (12:30)
--- NOTE | 2020-07-07 12:50 | Progress Note ---
DATE: 07/07/2020 Cardiology Progress Note SUBJECTIVE: The patient denies chest pain or shortness of breath. OBJECTIVE: VITAL SIGNS: Temperature 98 degrees, pulse 86, respiratory rate 20, blood pressure 153/54, and oxygen saturation 100% on room air. GENERAL: Awake, alert, no acute distress, elderly woman. LUNGS: Clear to auscultation bilaterally. No wheezes or crackles. CARDIOVASCULAR: Normal rate. Regular rhythm. No murmur. Normal S1, S2. ABDOMEN: Soft, nontender. EXTREMITIES: No edema. CARDIAC MEDICATIONS: Aspirin 81 mg p.o. daily and levothyroxine 75 mcg p.o. daily. LABORATORY DATA: Sodium 140, potassium 3.8, chloride 109, CO2 of 19, BUN 25, and creatinine 2.88. IMPRESSION: 1. Acute kidney injury on chronic kidney disease. 2. Peripheral arterial disease with remaining stenosis of bilateral common iliac arteries. 3. Diabetes mellitus. 4. Hyperlipidemia. 5. Hypothyroidism.. RECOMMENDATIONS: Given the patient's acute kidney injury, no intervention is planned at this time. Monitor for wounds and gangrenous changes. Medical therapy with aspirin 81 mg p.o. daily. Cholesterol is controlled. Blood pressure is borderline for her age. Monitor for now. Management of acute kidney injury per Nephrology. No further cardiac evaluation is indicated at this time. Thank you for this consult. We will continue to follow. Rosario Kee MD ABS/MODL /[id number]
--- NOTE | 2020-07-07 13:00 | NUR ---
PT DISCHARGED HOME SAFELY WITH FAMILY MEMBER. IV REMOVED, TIP INTACT. DRESSING APPLIED. RX GIVEN. DISCHARGE INSTRUCTIONS GIVEN AND PATIENT VERBALIZED UNDERSTANDING. PT ESCORTED VIA WHEEL CHAIR TO THE PRIVATE AUTO AT THE FRONT ENTRANCE. PT DENIED FURTHER NEEDS.
== END 2020-07-07 13:09 | disposition home or self-care (01) | DRG 699 ==
LOC: MED/SURG2 17:02
PROVIDERS: ADMIT Internal Medicine; ATTEND Internal Medicine
DX: N14.1 Nephropathy induced by other drugs, medicaments and biological substances (principal); N39.0 Urinary tract infection, site not specified; N17.9 Acute kidney failure, unspecified; T50.8X5A Adverse effect of diagnostic agents, initial encounter; N18.3 Chronic kidney disease, stage 3 (moderate); I12.9 Hypertensive chronic kidney disease with stage 1 through stage 4 chronic kidney disease, or unspecified chronic kidney disease; E11.22 Type 2 diabetes mellitus with diabetic chronic kidney disease; Z79.4 Long term (current) use of insulin; Z86.19 Personal history of other infectious and parasitic diseases; Z11.59 Encounter for screening for other viral diseases; E11.51 Type 2 diabetes mellitus with diabetic peripheral angiopathy without gangrene; E03.9 Hypothyroidism, unspecified; E87.5 Hyperkalemia; F32.9 Major depressive disorder, single episode, unspecified
CPT/HCPCS: 36415; 72072; 72100; 74176; 76770; 80048; 80053; 80061; 81001; 81015; 82550; 82948; 83735; 84100; 84443; 84550; 85025; 86039; 86160; 87086; 87186; J0696; J7030; J7070; U0002

== ENCOUNTER → 2020-06-30 | Outpatient (CLI) | payer MEDICARE, OTHER ==
[~2020-06-30] MED LIST: ECOTRIN81 MG; KEFLEX500 MG; LEVOTHYROXINE75 MCG PO; METFORMIN HCL500 MG PO; MIRTAZAPINE15 MG PO; SENNA LAX8.6 MG PO; SERTRALINE HCL50 MG PO
[2020-06-30 10:05] LABS: BASOPHILS # (AUTO) 0.1 (0.0-0.1); BASOPHILS % 0.6 % (0.0-1.0); EOSINOPHILS # (AUTO) 0.2 (0.0-0.4); EOSINOPHILS % 2.2 % (0.0-6.0); HEMATOCRIT 30.5 % (34.2-44.1); HEMOGLOBIN 9.2 g/dL (12.0-16.0); LYMPHOCYTES # (AUTO) 1.3 (1.0-3.2); LYMPHOCYTES % 16.7 % (18.0-39.1); MEAN CORPUSCULAR HEMOGLOBIN 26.1 pg (28-32); MEAN CORPUSCULAR HGB CONC 30.2 g/dL (31-35); MEAN CORPUSCULAR VOLUME 86.6 fL (81-99); MONOCYTES # (AUTO) 0.4 (0.2-0.8); MONOCYTES % 4.9 % (4.4-11.3); NEUTROPHILS % 75.4 % (38.7-80.0); PLATELET COUNT 265 x10e3/uL (140-360); RED BLOOD COUNT 3.52 x10e6/uL (3.6-5.1); RED CELL DISTRIBUTION WIDTH 14.8 % (11.7-14.4)
[2020-06-30 10:29] LABS: ALBUMIN/GLOBULIN RATIO 0.6 (0.8-2.0); ANION GAP 15.3 mmol/L (8-16); CALCIUM 9.3 mg/dL (8.4-10.2); CREATININE, SERUM 4.05 mg/dL (0.57-1.11); POTASSIUM 5.3 mmol/L (3.5-5.1)
--- NOTE | 2020-06-30 13:00 | NUR ---
1300pm reported abnormal labs to DR Pedroza face to face.Md liriano followup with pt regarding procedural event scheduled and abnormal findings. layla/frantz
== END ==
LOC: LAB 05:00 → EDSTATUS 07-05 13:00
PROVIDERS: ATTEND Internal Medicine Interventional Cardiology
DX: Z01.818 Encounter for other preprocedural examination (principal); I73.9 Peripheral vascular disease, unspecified; Z53.8 Procedure and treatment not carried out for other reasons; Z11.59 Encounter for screening for other viral diseases
CPT/HCPCS: 36415; 80053; 85025; U0002

== ENCOUNTER 2020-11-10 17:49 | Inpatient (IN) | payer MEDICARE, OTHER ==
[~2020-11-10] VITALS: Ht 160 cm; Wt 60.1 kg
[2020-11-10] MEDS ORDERED: TRAMADOL HCL 50 MG TAB PO ONE (21:15)
[2020-11-10 21:39] LABS: BASOPHILS % 0.4 % (0.0-1.0); EOSINOPHILS # (AUTO) 0.2 (0.0-0.4); EOSINOPHILS % 2.3 % (0.0-6.0); HEMATOCRIT 35.7 % (34.2-44.1); HEMOGLOBIN 11.1 g/dL (12.0-16.0); LYMPHOCYTES # (AUTO) 1.7 (1.0-3.2); LYMPHOCYTES % 20.5 % (18.0-39.1); MEAN CORPUSCULAR HEMOGLOBIN 26.9 pg (28-32); MEAN CORPUSCULAR HGB CONC 31.1 g/dL (31-35); MEAN CORPUSCULAR VOLUME 86.7 fL (81-99); MONOCYTES # (AUTO) 0.5 (0.2-0.8); MONOCYTES % 5.4 % (4.4-11.3); NEUTROPHILS # (AUTO) 5.9 (2.1-6.9); PLATELET COUNT 245 x10e3/uL (140-360); RED BLOOD COUNT 4.12 x10e6/uL (3.6-5.1); RED CELL DISTRIBUTION WIDTH 13.1 % (11.7-14.4)
[2020-11-10 21:53] LABS: AMYLASE 118 U/L (25-125); LIPASE 54 U/L (8-78)
[2020-11-10 21:59] LABS: ALBUMIN 3.5 g/dL (3.5-5.0); ALBUMIN/GLOBULIN RATIO 0.7 (0.8-2.0); ANION GAP 15.5 mmol/L (8-16); CALCIUM 9.2 mg/dL (8.4-10.2); CREATININE, SERUM 2.98 mg/dL (0.57-1.11)
[2020-11-10 22:01] LABS: POTASSIUM 5.5 mmol/L (3.5-5.1)
[2020-11-10] MEDS ORDERED: MORPHINE SULFATE INJ 2 MG/ML SYR IV STA (22:37)
[2020-11-10] MEDS ORDERED: ONDANSETRON HCL INJ 2MG/ML 2ML 2 MG/ML VIAL IV STA (22:37)
[2020-11-10 22:43] LABS: CLARITY,URINE CLOUDY (CLEAR); COLOR,URINE YELLOW (YELLOW); KETONES,URINE NEGATIVE (NEGATIVE); LEUKOCYTE ESTERASE ,URINE NEGATIVE (NEGATIVE); NITRITE,URINE NEGATIVE (NEGATIVE); PROTEIN,URINE DIPSTICK >=300 (NEGATIVE); URINE UROBILINOGEN 0.2 mg/dL (0.2 - 1)
[2020-11-10 22:49] LABS: BACTERIA,URINE MANY /HPF; EPITHELIAL CELLS,URINE FEW /LPF; RBC,URINE 21-50 /HPF (0-5)
[2020-11-11] VITALS (9 sets, daily range): BP systolic 147–175; BP diastolic 61–90
[2020-11-11] MEDS ORDERED: SODIUM CHLORIDE 0.9% 1000ML 1,000 ML IV ONE (01:00)
[2020-11-11] MEDS ORDERED: MORPHINE SULFATE INJ 4 MG/ML INJ 1ML IV PRN (01:00)
[2020-11-11] MEDS ORDERED: DEXTROSE 50% SYRINGE 50 ML IV PRN (01:00)
[2020-11-11] MEDS ORDERED: SOD POLYSTYRENE SULFONATE SUSP 15 GM/60 ML BTL PO ONE (01:00)
[2020-11-11] MEDS: CEFTRIAXONE SOD 1 GM/NS 50 ML 50 ML IV SCH ×2 (01:26→21:26)
[2020-11-11] MEDS: ONDANSETRON HCL INJ 2MG/ML 2ML 2 MG/ML VIAL IV PRN ×2 (03:30→07:30)
[2020-11-11] MEDS ORDERED: INSULIN REGULAR, HUMAN 100 UNIT/1 ML 3ML VIAL SQ SCH (07:30)
[2020-11-11 08:55] LABS: ANION GAP 15.2 mmol/L (8-16); CALCIUM 8.8 mg/dL (8.4-10.2); CREATININE, SERUM 2.89 mg/dL (0.57-1.11); POTASSIUM 5.2 mmol/L (3.5-5.1)
[2020-11-11] MEDS: SODIUM BICARBONATE 650 MG TAB PO SCH ×2 (09:37→17:23)
[2020-11-11] MEDS ORDERED: BISACODYL 10 MG SUPP PR PRN (10:00)
[2020-11-11] MEDS ORDERED: SOD POLYSTYRENE SULFONATE SUSP 15 GM/60 ML BTL PR ONE (10:30)
[2020-11-11] MEDS: HYDROCODONE/APAP 7.5MG-325MG 1 EA TAB PO PRN ×2 (11:00→21:19)
[2020-11-11] MEDS: SENNA-S TABLET PO SCH ×2 (11:03→17:23)
[2020-11-11] MEDS: LEVOTHYROXINE SODIUM 75 MCG TAB PO SCH (11:03)
[2020-11-11] MEDS: SODIUM BICARBONATE 8.4% 50 ML in SODIUM CHLORIDE 0.45% 1,000 ML IV SCH ×2 (12:10→21:25)
[2020-11-11] MEDS ORDERED: SENNOSIDES 8.6 MG TAB PO SCH (17:00)
[2020-11-11] MEDS: MIRTAZAPINE 15 MG TAB PO SCH (21:25)
[2020-11-11] MEDS: TERAZOSIN HCL 1 MG CAP PO SCH (21:25)
[2020-11-11] MEDS: SERTRALINE HCL 50 MG TAB PO SCH (21:25)
[2020-11-12] VITALS (8 sets, daily range): BP systolic 107–166; BP diastolic 56–88
[2020-11-12 06:13] LABS: BASOPHILS % 0.4 % (0.0-1.0); EOSINOPHILS # (AUTO) 0.2 (0.0-0.4); EOSINOPHILS % 3.1 % (0.0-6.0); HEMATOCRIT 29.1 % (34.2-44.1); HEMOGLOBIN 9.1 g/dL (12.0-16.0); LYMPHOCYTES # (AUTO) 1.4 (1.0-3.2); LYMPHOCYTES % 24.7 % (18.0-39.1); MEAN CORPUSCULAR HEMOGLOBIN 27.2 pg (28-32); MEAN CORPUSCULAR HGB CONC 31.3 g/dL (31-35); MEAN CORPUSCULAR VOLUME 86.9 fL (81-99); MONOCYTES # (AUTO) 0.3 (0.2-0.8); MONOCYTES % 5.1 % (4.4-11.3); NEUTROPHILS # (AUTO) 3.7 (2.1-6.9); NEUTROPHILS % 66.3 % (38.7-80.0); PLATELET COUNT 170 x10e3/uL (140-360); RED BLOOD COUNT 3.35 x10e6/uL (3.6-5.1)
[2020-11-12] MEDS: LEVOTHYROXINE SODIUM 75 MCG TAB PO SCH (06:17)
[2020-11-12 06:54] LABS: ALBUMIN 2.3 g/dL (3.5-5.0); ALBUMIN/GLOBULIN RATIO 0.7 (0.8-2.0); ANION GAP 10.1 mmol/L (8-16); CALCIUM 7.5 mg/dL (8.4-10.2); CREATININE, SERUM 2.65 mg/dL (0.57-1.11); POTASSIUM 4.1 mmol/L (3.5-5.1)
[2020-11-12] MEDS: ASPIRIN 81 MG ENTERIC COATED PO SCH (09:19)
[2020-11-12] MEDS: SODIUM BICARBONATE 650 MG TAB PO SCH ×2 (09:19→16:08)
[2020-11-12] MEDS: SENNA-S TABLET PO SCH ×2 (09:19→16:08)
[2020-11-12] MEDS: SODIUM BICARBONATE 8.4% 50 ML in SODIUM CHLORIDE 0.45% 1,000 ML IV SCH ×2 (11:54→18:26)
[2020-11-12] MEDS: CEFEPIME 1GM/NS 0.9% 50 ML 50 ML IV SCH ×2 (11:55→22:43)
[2020-11-12] MEDS: MIRTAZAPINE 15 MG TAB PO SCH (20:12)
[2020-11-12] MEDS: SERTRALINE HCL 50 MG TAB PO SCH (20:12)
[2020-11-12] MEDS: HYDROCODONE/APAP 7.5MG-325MG 1 EA TAB PO PRN (20:13)
[2020-11-12] MEDS: TERAZOSIN HCL 1 MG CAP PO SCH (22:43)
[2020-11-13] VITALS: BP 121/52
[2020-11-13 04:00] VITALS: BP 120/57
[2020-11-13] MEDS: SODIUM BICARBONATE 8.4% 50 ML in SODIUM CHLORIDE 0.45% 1,000 ML IV SCH (04:06)
[2020-11-13] MEDS: LEVOTHYROXINE SODIUM 75 MCG TAB PO SCH (05:37)
[2020-11-13 06:57] LABS: ANION GAP 12.3 mmol/L (8-16); CALCIUM 7.9 mg/dL (8.4-10.2); CREATININE, SERUM 2.69 mg/dL (0.57-1.11); POTASSIUM 3.3 mmol/L (3.5-5.1)
[2020-11-13 08:00] VITALS: BP 131/51
[2020-11-13] MEDS ORDERED: POTASSIUM CHLORIDE 20 MEQ TAB CR PO STA (08:41)
[2020-11-13] MEDS: ASPIRIN 81 MG ENTERIC COATED PO SCH (11:05)
[2020-11-13] MEDS: CEFEPIME 1GM/NS 0.9% 50 ML 50 ML IV SCH (11:06)
[2020-11-13] MEDS: SENNA-S TABLET PO SCH (11:06)
[2020-11-13] MEDS: SODIUM BICARBONATE 650 MG TAB PO SCH (11:06)
[2020-11-13 11:11] VITALS: BP 131/51
[2020-11-13 12:00] VITALS: BP 160/64
[2020-11-13] MEDS ORDERED: KEFLEX500 MG PO (13:48)
[2020-11-13] MEDS ORDERED: SODIUM BICARBO650 MG PO (13:49)
== END 2020-11-13 14:35 | disposition home or self-care (01) | DRG 689 ==
LOC: ER 21:06 → ERHOLD 11-11 00:51 → MED/SURG3 11-11 02:21
PROVIDERS: ADMIT Internal Medicine; ATTEND Internal Medicine
DX: N39.0 Urinary tract infection, site not specified (principal); N17.1 Acute kidney failure with acute cortical necrosis; E87.2 Acidosis; N18.4 Chronic kidney disease, stage 4 (severe); N17.9 Acute kidney failure, unspecified; E87.5 Hyperkalemia; E03.9 Hypothyroidism, unspecified; Z90.49 Acquired absence of other specified parts of digestive tract; Z88.0 Allergy status to penicillin; E11.22 Type 2 diabetes mellitus with diabetic chronic kidney disease; I12.9 Hypertensive chronic kidney disease with stage 1 through stage 4 chronic kidney disease, or unspecified chronic kidney disease; E86.0 Dehydration; N25.89 Other disorders resulting from impaired renal tubular function; D64.9 Anemia, unspecified; Z86.16 Personal history of COVID-19; Z20.822 Contact with and (suspected) exposure to COVID-19; B96.20 Unspecified Escherichia coli [E. coli] as the cause of diseases classified elsewhere; Z79.82 Long term (current) use of aspirin; R33.9 Retention of urine, unspecified
CPT/HCPCS: 36415; 74176; 80048; 80053; 81001; 82150; 82948; 83690; 83970; 84100; 84165; 84550; 85025; 86021; 87086; 87186; 99284; J0692; J0696; J2270; J2405; J7030; U0002